=== PATIENT | female | born 1955 | race Caucasian/White ===

== ENCOUNTER → 2017-07-13 | Outpatient (CLI) | payer OTHER ==
--- NOTE | 2017-07-13 16:04 | WOMENS IMAGING REPORT ---
EXAM DESCRIPTION: BILAT SCREENING MAMMO W/CAD COMPLETED DATE/TIME: 07/13/2017 9:54 am REASON FOR STUDY: ROUTINE SCREENING; Z12.31 Z12.31 ENCNTR SCREEN MAMMOGRAM FOR MALIGNANT NEOPLASM O F JULIO CÉSAR COMPARISON: Multiple since 2008 TECHNIQUE: Standard craniocaudal and mediolateral oblique views of each breast recorded using GeoQuipa l acquisition. LIMITATIONS: None. FINDINGS: No masses, calcifications or architectural distortion. No areas of suspicion. Read with the assistance of CAD. .[facility] - R2 Cenova Version 1.3 .[facility] Imaging - R2 Cenova Version 1.3 .[facility] - R2 Cenova Version 2.4 .[facility] [place]2 Cenova Version 2.4 .[facility] - R2 Lang Path Therapist Version 9.2 IMPRESSION: NORMAL MAMMOGRAM. BIRADS 1. BREAST DENSITY: c. The breasts are heterogeneously dense, which may obscure small masses. BIRAD: 1 NEGATIVE RECOMMENDATION: ROUTINE SCREENING COMMENT: The patient has been notified of the results by letter per SA requirements. Additional no tification policies are in place for contacting patient with suspicious or incomplete findings. Quality ID #[id number]: The [employer] recommends an annual screening mammogram for women aged 40 years or over. This facility utilizes a reminder system to ensure that all patients receive reminder letters, and/or direct phone calls for appointments. This includes reminders for routine scr eening mammograms, diagnostic mammograms, or other Breast Imaging Interventions when appropriate. Th is patient will be placed in the appropriate reminder system. The [employer] (ACR) has developed recommendations for screening MRI of the breast s in certain patient populations, to be used in conjunction with mammography. Breast MRI surveillanc e may be appropriate for women with more than 20% lifetime risk of developing breast cancer as deter mined by genetic testing, significant family history of the disease, or history of mantle radiation f or Hodgkins Disease. ACR Practice Guidelines 2008. TECHNICAL DOCUMENTATION: FINDING NUMBER: (1) ASSESSMENT: (1) JOB ID: [id number] [employer]- All Rights Reserved
== END ==
LOC: WI 09:39
PROVIDERS: ATTEND Family Medicine
DX: Z12.31 Encounter for screening mammogram for malignant neoplasm of breast (principal)
CPT/HCPCS: 77067

== ENCOUNTER → 2018-07-25 | Outpatient (CLI) | payer OTHER ==
--- NOTE | 2018-07-25 11:38 | WOMENS IMAGING REPORT ---
EXAM DESCRIPTION: BILAT SCREENING MAMMO W/CAD COMPLETED DATE/TIME: 07/25/2018 11:03 am REASON FOR STUDY: ROUTINE BILATERAL SCREENING;Z12.31 Z12.31 ENCNTR SCREEN MAMMOGRAM FOR MALIGNANT N EOPLASM OF JULIO CÉSAR COMPARISON: [id number] TECHNIQUE: Standard craniocaudal and mediolateral oblique views of each breast recorded using Jianshua l acquisition. LIMITATIONS: None. FINDINGS: No masses, calcifications or architectural distortion. No areas of suspicion. Read with the assistance of CAD. .[facility] - R2 Cenova Version 1.3 .[facility] Imaging - R2 Cenova Version 1.3 .[facility] Imaging - R2 Cenova Version 2.4 .[facility] - R2 Cenova Version 2.4 .[facility] - R2 Foundry Melt Supervisor Version 9.2 IMPRESSION: NORMAL MAMMOGRAM. BIRADS 1. BREAST DENSITY: b. There are scattered areas of fibroglandular density. BIRAD: 1 NEGATIVE RECOMMENDATION: ROUTINE SCREENING COMMENT: The patient has been notified of the results by letter per MQSA requirements. Additional no tification policies are in place for contacting patient with suspicious or incomplete findings. Quality ID #[id number]: The [employer] recommends an annual screening mammogram for women aged 40 years or over. This facility utilizes a reminder system to ensure that all patients receive reminder letters, and/or direct phone calls for appointments. This includes reminders for routine scr eening mammograms, diagnostic mammograms, or other Breast Imaging Interventions when appropriate. Th is patient will be placed in the appropriate reminder system. The [employer] (ACR) has developed recommendations for screening MRI of the breast s in certain patient populations, to be used in conjunction with mammography. Breast MRI surveillanc e may be appropriate for women with more than 20% lifetime risk of developing breast cancer as deter mined by genetic testing, significant family history of the disease, or history of mantle radiation f or Hodgkins Disease. ACR Practice Guidelines 2008. TECHNICAL DOCUMENTATION: FINDING NUMBER: (1) ASSESSMENT: (1) JOB ID: [id number] [employer]- All Rights Reserved Reading location - IP/workstation name: [facility]
== END ==
LOC: WI 10:52
PROVIDERS: ATTEND Family Medicine
DX: Z12.31 Encounter for screening mammogram for malignant neoplasm of breast (principal)
CPT/HCPCS: 77067

== ENCOUNTER → 2020-01-16 | Outpatient (CLI) | payer OTHER ==
--- NOTE | 2020-01-16 11:42 | WOMENS IMAGING REPORT ---
EXAM DESCRIPTION: BILAT SCREENING MAMMO W/CAD IMAGES COMPLETED DATE/TIME: 01/16/2020 11:27 am REASON FOR STUDY: Z12.31 ENCOUNTER FOR SCREENING MAMMOGRAM FOR MALIGNANT NEOPLASM OF BREAST Z12.31 ENCNTR SCREEN MAMMOGRAM FOR MALIGNANT NEOPLASM OF JULIO CÉSAR COMPARISON: 07/25/2018, 07/13/2017 EXAM PARAMETERS: Standard craniocaudal and mediolateral oblique views of each breast recorded using digital acquisition. Read with the assistance of CAD. .[facility] [employer] Box Chipper Version 9.2 LIMITATIONS: None. FINDINGS: No suspicious masses, suspicious calcifications or architectural distortion. No areas of c oncern. IMPRESSION: NEGATIVE MAMMOGRAM. BIRADS 1 BREAST DENSITY: b. There are scattered areas of fibroglandular density. BIRAD: ASSESSMENT: 1 NEGATIVE RECOMMENDATION: ROUTINE SCREENING COMMENT: The patient has been notified of the results by letter per MQSA requirements. Additional no tification policies are in place for contacting patient with suspicious or incomplete findings. Quality ID #225: The [employer] recommends an annual screening mammogram for women aged 40 years or over. This facility utilizes a reminder system to ensure that all patients receive reminder letters, and/or direct phone calls for appointments. This includes reminders for routine scr eening mammograms, diagnostic mammograms, or other Breast Imaging Interventions when appropriate. Th is patient will be placed in the appropriate reminder system. TECHNICAL DOCUMENTATION: FINDING NUMBER: (1) ASSESSMENT: (1) JOB ID: [id number] 2010 [employer]- All Rights Reserved Reading location - IP/workstation name: [email or web address]
== END ==
LOC: WI 10:43
PROVIDERS: ATTEND Family Medicine
DX: Z12.31 Encounter for screening mammogram for malignant neoplasm of breast (principal)
CPT/HCPCS: 77067

== ENCOUNTER 2020-02-04 21:23 | Observation (INO) | payer OTHER ==
--- NOTE | 2020-02-04 22:02 | ER Document Report ---
ED Syncope and Near Syncope - General Chief Complaint: Syncope Stated Complaint: SYNCOPAL EPISODES Time Seen by Provider: 02/04/20 21:40 Primary Care Provider: BAKARI VERDIN MD [Primary Care Provider] - Follow up as needed Mode of Arrival: Medic Information source: Patient, Relative Notes: 64-year-old female presented to ED after having a syncopal episode at her daughter's house. She states about a half an hour before passing out she took her Cymbalta and her trazodone. She states she went to her ENT doctor today about 3 PM and at that time he told her her blood pressure was 90/60. She states she normally has high blood pressure but she takes Micardis which she took around noon time. She states when she went to her daughter's house before getting out of the car she felt drunk which she does not usually feel with her trazodone. She states she got out of the car stood up and then she passed out landing on the ground. states he had already gone into the daughter's house and came out and found her on the ground but she was awake and alert. She also has diabetes and told her her sugar was high today at her visit. She states they started on insulin today but she has not taken any insulin yet. She states EMS told her that her Accu-Chek was 290. Patient is alert oriented able to answer all questions. Her blood pressure at this time is 83/55. TRAVEL OUTSIDE OF THE [place] IN LAST 30 DAYS: No - HPI Patient complains to provider of: Other - States he got out of the car and passed out Episode witnessed (by whom): Yes - Found on the ground awake at that time. She does have scratches to the french Symptoms prior to episode: Dizziness, Headache, Other - Neck pain Position/Activity at time of episode: Standing Quality of pain: Achy Severity: Moderate Pain Level: 3 Context: Collapsed, Other Injury location: Back, Neck Current symptoms: Headache, Neck pain, Weakness Similar symptoms previously: No Recently seen / treated by doctor: Yes - Related Data Allergies/Adverse Reactions: avocado Allergy (Intermediate, Verified 02/04/20 21:55) iodine Allergy (Mild, Verified 02/04/20 21:55) rash Sulfa (Sulfonamide Antibiotics) Allergy (Mild, Verified 02/04/20 21:55) rash ivp dye Allergy (Mild, Uncoded 02/04/20 21:55) rash Past Medical History - General Information source: Patient - Social History Smoking Status: Never Smoker Frequency of alcohol use: None Drug Abuse: None Lives with: Family Family History: Reviewed & Not Pertinent Patient has suicidal ideation: No Patient has homicidal ideation: No - Past Medical History Cardiac Medical History: Reports: Hx Coronary Artery Disease, Hx Hypercholesterolemia, Hx Hypertension Pulmonary Medical History: Reports: Hx Pneumonia - A YOUNG CHILD AND ABOUT 10YRS AGO Neurological Medical History: Reports: Hx Seizures - FEBRILE SEIZURES A BABY Endocrine Medical History: Reports: Hx Diabetes Mellitus Type 2 Renal/ Medical History: Reports: None Malignancy Medical History: Reports: None GI Medical History: Reports: None Musculoskeletal Medical History: Reports Hx Arthritis - KNEES Skin Medical History: Reports None Psychiatric Medical History: Reports: Hx Anxiety, Hx Depression Past Surgical History: Reports: Hx Cholecystectomy, Hx Hysterectomy - total, Hx Nose Surgery - Surgery, Hx Orthopedic Surgery - Right hip replacement - Immunizations Hx Diphtheria, Pertussis, Tetanus Vaccination: Yes - ABOUT 5YRS AGO Review of Systems - Review of Systems Constitutional: No symptoms reported EENT: No symptoms reported Cardiovascular: Dizziness Respiratory: No symptoms reported Gastrointestinal: No symptoms reported Genitourinary: No symptoms reported Female Genitourinary: No symptoms reported Musculoskeletal: Muscle pain, Neck pain Skin: Other - Lesions to the left hand Hematologic/Lymphatic: No symptoms reported Neurological/Psychological: Lost consciousness - states he went in and came back out and she was already awake, Headaches -: Yes All other systems reviewed and negative Physical Exam - Vital signs Vitals: Temp 97.9 F 02/04/20 22:16 Interpretation: Normal - General General appearance: Appears well, Alert - HEENT Head: Tenderness Eyes: Normal Pupils: PERRL Ears: Normal External canal: Normal Tympanic membrane: Normal Sinus: Normal Nasal: Normal Mucous membranes: Normal Pharynx: Normal Neck: Normal - Respiratory Respiratory status: No respiratory distress Chest status: Nontender Breath sounds: Normal Chest palpation: Normal - Cardiovascular Rhythm: Regular Heart sounds: Normal auscultation Murmur: No - Abdominal Inspection: Normal Distension: No distension Bowel sounds: Normal Tenderness: Nontender Organomegaly: No organomegaly - Back Back: Normal, Nontender - Extremities General upper extremity: Normal inspection, Nontender, Normal color, Normal ROM, Normal temperature General lower extremity: Normal inspection, Nontender, Normal color, Normal ROM, Normal temperature, Normal weight bearing. No: Pia's sign - Neurological Neuro grossly intact: Yes Cognition: Normal Orientation: AAOx4 Yoly Coma Scale Eye Opening: Spontaneous Yoly Coma Scale Verbal: Oriented Yoly Coma Scale Motor: Obeys Commands [place] Coma Scale Total: 15 Speech: Normal Motor strength normal: LUE, RUE, LLE, RLE Sensory: Normal - Psychological Associated symptoms: Normal affect, Normal mood - Skin Skin Temperature: Warm Skin Moisture: Dry Skin Color: Normal Course - Re-evaluation Re-evalutation: 02/05/20 01:46 Orthostatic hypotension signs were put in the computer backwards. Her standing blood pressure was 99/69 with a pulse of 75 her sitting blood pressure was 108/73 and her lying blood pressure was 124 with a pulse of 95. She states she is feeling much better. Her glucose did drop from 319 -280 after the first liter of fluids. Have discussed this patient with Dr. Osuna who did go in and examined the patient. Cardiac enzymes were negative her BUN/creatinine were normal she has received 2 L of fluids. I have discussed this with Dr. Perez and she will be admitted to observation telemetry to ensure that she is no longer orthostatic hypotension. - Vital Signs Vital signs: Temp Pulse Resp BP Pulse Ox 97.9 F 75 99/69 L 02/04/20 22:16 02/05/20 01:04 02/05/20 01:04 - Laboratory Result Diagrams: 02/04/20 22:12 02/04/20 22:12 Laboratory results interpreted by me: 02/04/20 02/04/20 02/05/20 22:12 22:12 00:44 MCV 98 H Plt Count 131 L Sodium 134.3 L Glucose 319 H AST 210 H ALT 325 H Creatine Kinase 26 L Urine Protein 30 H Urine Glucose (UA) >=500 H - Diagnostic Test Radiology reviewed: Image reviewed, Reports reviewed - EKG Interpretation by Me EKG shows normal: Sinus rhythm, Leona, Intervals, QRS Complexes, ST-T Waves Discharge - Discharge Clinical Impression: Syncope Qualifiers: Syncope type: unspecified Qualified Code(s): R55 - Syncope and collapse Hypotension Qualifiers: Hypotension type: orthostatic hypotension Qualified Code(s): I95.1 - Orthostatic hypotension Disposition: ADMITTED OBSERVATION Admitting Provider: Chris (Hospitalist) Unit Admitted: Telemetry Referrals: BAKARI VERDIN MD [Primary Care Provider] - Follow up as needed
[2020-02-04] MEDS: NORMAL SALINE 1000 ML 1,000 ML IV PRN ×2 (22:25→23:29)
[2020-02-04 22:40] LABS: ABSOLUTE BASOPHILS # (AUTO) 0.1 10^3/uL (0.0-0.2); ABSOLUTE EOSINOPHILS # (AUTO) 0.3 10^3/uL (0.0-0.6); ABSOLUTE LYMPHOCYTES (AUTO) 1.3 10^3/uL (0.5-4.7); ABSOLUTE MONOCYTES (AUTO) 0.7 10^3/uL (0.1-1.4); ABSOLUTE NEUT (AUTO) 4.4 10^3/uL (1.7-8.2); EOSINOPHILS % (AUTO) 4.3 % (0-6); HEMATOCRIT 42.3 % (36.0-47.0); HEMOGLOBIN 14.1 g/dL (12.0-15.5); LYMPHOCYTES % (AUTO) 18.9 % (13-45); MEAN CORPUSCULAR HEMOGLOBIN 32.9 pg (27.0-33.4); MEAN CORPUSCULAR HGB CONC 33.5 g/dL (32.0-36.0); MEAN CORPUSCULAR VOLUME 98 fl (80-97); MONOCYTES % (AUTO) 10.1 % (3-13); PLATELET COUNT 131 10^3/uL (150-450); SEGMENTED NEUTROPHILS % (AUTO) 65.7 % (42-78); TOTAL CELLS COUNTED % (AUTO) 100 %; WHITE BLOOD COUNT 6.7 10^3/uL (4.0-10.5)
[2020-02-04 22:57] LABS: ALBUMIN 4.2 g/dL (3.5-5.0); ALKALINE PHOSPHATASE 62 U/L (38-126); ANION GAP 8 (5-19); ASPARTATE AMINO TRANSFERASE 210 U/L (14-36); BILIRUBIN,DIRECT 0.1 mg/dL (0.0-0.4); BILIRUBIN,TOTAL 0.9 mg/dL (0.2-1.3); BLOOD UREA NITROGEN 16 mg/dL (7-20); CALCIUM 9.2 mg/dL (8.4-10.2); CARBON DIOXIDE 24 mmol/L (22-30); CHLORIDE 102 mmol/L (98-107); CREATINE KINASE 26 U/L (30-135); GLUCOSE 319 mg/dL (75-110); POTASSIUM 4.5 mmol/L (3.6-5.0); TOTAL PROTEIN 7.3 g/dL (6.3-8.2)
--- NOTE | 2020-02-04 23:06 | RADIOLOGY REPORT (SQ) ---
EXAM DESCRIPTION: CT HEAD WITHOUT IV CONTRAST COMPLETED DATE/TME: 02/04/2020 21:55 CLINICAL HISTORY: 64 years, Female, Syncopal episode with head and neck pain COMPARISON: None. TECHNIQUE: Noncontrast CT head was acquired. Coronal and sagittal reformations were created. Images stored on PACS. All CT scanners at this facility use dose modulation, iterative reconstruction, and/or weight based dosing when appropriate to reduce radiation dose to as low as reasonably achievable (ALARA). [facility]: Dose Right [facility]: CareDose [facility]: Dose Right [facility]: Teradose 4D [facility]: Polyvore LIMITATIONS: None. FINDINGS: Evaluation of the brain parenchyma reveals an isolated focus of hypodensity about the anterior limb of the left internal capsule, indicating a remote lacunar infarct. Ventricles and sulcal spaces are mildly enlarged. Globes and orbits show no acute abnormality. Mild mucosal thickening is noted about the right maxillary antrum. Remaining paranasal sinuses and mastoid air cells are clear. No depressed skull fractures. The sella is completely empty. IMPRESSION: No acute intracranial abnormality. Mild generalized atrophy. Small remote lacunar infarct within the anterior limb of the left internal capsule. TECHNICAL DOCUMENTATION: Quality ID # 436: Final reports with documentation of one or more dose reduction techniques (e.g., Automated exposure control, adjustment of the mA and/or kV according to patient size, use of iterative reconstruction technique) copyright 2011 [facility] [employer]- All Rights Reserved
[2020-02-04 23:09] LABS: CREATINE KINASE MB < 0.22 ng/mL (<4.55); TROPONIN I < 0.012 ng/mL
--- NOTE | 2020-02-04 23:12 | RADIOLOGY REPORT (SQ) ---
EXAM DESCRIPTION: CT CERVICAL SPINE WITHOUT IV CONTRAST COMPLETED DATE/TME: 02/04/2020 21:54 CLINICAL HISTORY: 64 years, Female, Syncopal episode with head and neck pain COMPARISON: None. TECHNIQUE: Noncontrast CT cervical spine was acquired. Coronal and sagittal reformations were created. Images stored on PACS. All CT scanners at this facility use dose modulation, iterative reconstruction, and/or weight based dosing when appropriate to reduce radiation dose to as low as reasonably achievable (ALARA). [facility]: Dose Right [facility]: CareDose [facility]: Dose Right [facility]: Teradose 4D [facility]: [email or web address] LIMITATIONS: None. FINDINGS: Limited evaluation of the posterior fossa structures reveals no suspicious abnormality. Occipital condyles are normal. Lateral masses of C1 and C2 align properly. Base and tip of the dens are intact. Craniocervical alignment is maintained. There is reversal of the normal cervical lordosis, either related to positioning and/or muscle spasm. Otherwise, mild/moderate multilevel cervical spondylosis is evident, designated by intervertebral space narrowing, hypertrophic endplate spurring, and facet hypertrophy. This is most pronounced spanning C5-C7. In addition, left uncovertebral joint hypertrophy at C5-C6 contributes to moderate left neural foraminal stenosis. Additional bilateral uncovertebral joint hypertrophy at C6-C7 contributes to mild bilateral right greater than left neural foraminal stenosis. No acute fracture or malalignment is appreciated. Visualized lung apices are clear. Paravertebral soft tissues show heterogenous enlargement of the left thyroid lobe posteriorly measuring up to 2.0 x 2.0 cm in size. Calcifications are evident about the carotid vasculature bilaterally. IMPRESSION: No acute fracture or malalignment. Reversal of the normal cervical lordosis, either related to positioning and/or muscle spasm. Multilevel cervical spondylosis, as above. Heterogeneous and enlarged thyroid. Recommend thyroid US. Reference: J Am Carter Radiol. 2015 Aug;12(2): 143-50 TECHNICAL DOCUMENTATION: Quality ID # 436: Final reports with documentation of one or more dose reduction techniques (e.g., Automated exposure control, adjustment of the mA and/or kV according to patient size, use of iterative reconstruction technique) copyright 2011 [employer]- All Rights Reserved
--- NOTE | 2020-02-04 23:37 | ER Document Report ---
Doctor's Note Notes: 02/04/20 23:32 This is a 64-year-old female I was asked to see along with nurse practitioner for evaluation of weakness and syncopal episode. Patient is followed by 1 of the community physicians with a history of hypertension, diabetes mellitus type 2 and depression on multiple medications. She took what would normally be her bedtime medications around 8 PM but then her decided that he wanted them to go visit her daughter shay before they went to bed. When they were getting in the car she had a brief syncopal episode and fell striking her head. Initial blood pressure was around 80 systolic. Prior to my evaluation she already received a liter of normal saline IV and pressure was up to 110/70 with a pulse rate of 60. She complains of some slight dull headache and otherwise has no specific complaints. She states that she has been eating and drinking normally. She denies diarrhea or vomiting. She denies any chest pain or shortness of breath. Evaluation at bedside shows patient is currently on a normal sinus rhythm her chest is clear her cardiac rhythm is regular and her neurologic exam is n onfocal. She is awake alert and appropriately oriented. Chest x-ray and EKG and urinalysis are pending. Her initial troponin is normal. Her comprehensive metabolic profile is remarkable for a glucose of 319 with transaminases elevated in the 150 range probably consistent with fatty infiltration of the liver associated with poorly controlled diabetes mellitus type 2. Current recommendations for the patient to remain on cardiac monitoring, have twelve-lead EKG documented and to receive an additional liter of fluid. Noncontrast CT of head and C-spine are pending at this time as well. 02/04/20 23:35
[2020-02-05 01:33] LABS: APPEARANCE,URINE SLIGHTLY-CLOUDY; BILIRUBIN,URINE NEGATIVE (NEGATIVE); COLOR,URINE YELLOW; GLUCOSE, URINE >=500 mg/dL (NEGATIVE); KETONES,URINE NEGATIVE (NEGATIVE); LEUKOCYTE ESTERASE,URINE NEGATIVE (NEGATIVE); NITRITE,URINE NEGATIVE (NEGATIVE); PROTEIN,URINE 30 mg/dL (NEGATIVE); URINE SPECIFIC GRAVITY 1.017; UROBILINOGEN,URINE NEGATIVE mg/dL (<2.0)
--- NOTE | 2020-02-05 01:50 | RADIOLOGY REPORT (SQ) ---
EXAM DESCRIPTION: [employer]: XR CHEST 2 VIEWS Views: 2 CLINICAL HISTORY: 64 years Female; syncope; COMPARISON: None. FINDINGS: Lungs: Lungs are clear, with no focal infiltrate, pneumothorax, or pleural effusion. Mediastinum: Mediastinum is within normal limits for this positioning. Bones: Bony structures are unremarkable. IMPRESSION: 1. No acute cardiothoracic abnormality.
[2020-02-05] MEDS ORDERED: MAGNESIUM HYDROXIDE SUSP 30 ML UDCUP PO PRN (03:43)
[2020-02-05] MEDS ORDERED: ONDANSETRON HCL INJ/PF 4 MG/2 ML SDV IV PRN (03:43)
[2020-02-05] MEDS ORDERED: MAG HYDROX/AL HYDROX/SIMETH SUSP 30 ML UDCUP PO PRN (03:43)
[2020-02-05] MEDS ORDERED: LORAZEPAM INJ 2 MG/1 ML VIAL IV PRN (03:49)
[2020-02-05] MEDS ORDERED: GUAIFENESIN SYRP 200 MG/10 ML UDC PO PRN (03:49)
[2020-02-05] MEDS ORDERED: ACETAMINOPHEN 325 MG TABLET PO PRN (03:49)
[2020-02-05] MEDS ORDERED: MORPHINE SULFATE 10 MG/ML INJ IV PRN (03:49)
[2020-02-05] MEDS ORDERED: MELATONIN 5 MG TABLET PO PRN (03:49)
[2020-02-05] MEDS ORDERED: INSULIN REG, HUMAN 100 UNIT/ML 3 ML VIAL (PYX) SUBCUT PRN (03:49)
[2020-02-05] MEDS ORDERED: GLUCAGON,HUMAN RECOMB 1 MG INJ IM PRN (03:52)
[2020-02-05] MEDS ORDERED: DEXTROSE 50%-WATER 25 GM/50 ML DISP.SYRIN IV PRN ×2 (03:52)
[2020-02-05] MEDS ORDERED: DEXTROSE 40% GEL 15 GM TUBE PO PRN ×2 (03:52)
[2020-02-05 05:34] LABS: CREATINE KINASE MB < 0.22 ng/mL (<4.55); TROPONIN I < 0.012 ng/mL
--- NOTE | 2020-02-05 06:45 | PDOC H&P ---
History of Present Illness Admission Date/PCP: 02/05/20 01:53 BAKARI VERDIN MD Patient complains of: Syncopal episode History of Present Illness: KENISHA BARRERA is a 64 year old female who presented emergency room with an acute syncopal episode. Prior to arrival in the ER she experienced a syncopal episode at her daughter's home. Before leaving home to go to visit her daughter she had taken her usual nighttime medications of trazodone and Cymbalta. When they arrived at her daughter's home she felt lightheaded and "drunk" as she was getting out of the car and then as she stood up she lost consciousness landing on the ground, striking the back of her head. She was unconscious for only a minute or so before spontaneously regaining consciousness and was alert but still laying on the ground by the time her arrived by her side as he returned from the house. She felt awake and alert but still became lightheaded with any attempts at standing. She denies other associated or accompanying signs and symptoms. She denies prior similar episodes. She admits that earlier in the day she had been told she would have to start taking insulin because her blood sugar control was poor. She was also seen by her ear nose and throat physician who told her incidentally that her blood pressure was 90/60 in his office. She has not identified any additional aggravating or ameliorating factors for her syncope. In the emergency room she was noted to be mildly hypotensive with a blood pressure 83/55 which improved after receiving a liter of IV fluid. CT scan of the head was negative for intracranial injury or acute intracranial process. Patient was still orthostatically hypotensive after receiving fluids. She was subsequently admitted to observation status for further evaluation and treatment. Past Medical History Cardiac Medical History: Reports: Coronary Artery Disease, Hyperlipidema, Hypertension Denies: Atrial Fibrillation, Congestive Heart Failure, DVT, Myocardial Infarction, Peripheral Vascular Disease, Pulmonary Embolism Pulmonary Medical History: Reports: Pneumonia - A YOUNG CHILD AND ABOUT 10YRS AGO Denies: Asthma, Bronchitis, Chronic Obstructive Pulmonary Disease (COPD) EENT Medical History: Denies: Cataracts, Ears - Hearing aids Neurological Medical History: Reports: Seizures - Infantile febrile seizures Denies: Hemorrhagic CVA, Ischemic CVA Endocrine Medical History: Reports: Diabetes Mellitus Type 2, Hypothyroidism, Obesity Denies: Diabetes Mellitus Type 1, Hyperthyroidism Renal/ Medical History: Denies: Chronic Kidney Disease, Nephrolithiasis Malignancy Medical History: Reports: None GI Medical History: Denies: Cirrhosis, Crohn's Disease, Hepatitis, Ulcerative Colitis Musculoskeltal Medical History: Reports: Arthritis - Bilateral knees Denies: Fibromyalgia Skin Medical History: Denies: Eczema, Psoriasis Psychiatric Medical History: Reports: Bipolar Disorder, Depression Denies: Alcohol Dependency, Substance Abuse, Tobacco Dependency Traumatic Medical History: Reports: None Hematology: Denies: Anemia, Bleeding Tendencies Infectious Medical History: Reports: None Past Surgical History Past Surgical History: Reports: Cholecystectomy, Hip Replacement, Hysterectomy - [facility], Orthopedic Surgery - Right hip replacement, Other - Multiple endoscopic procedures Social History Information Source: Patient Lives with: Spouse/Significant other Smoking Status: Never Smoker Electronic Cigarette use?: Yes Frequency of Alcohol Use: None Hx Recreational Drug Use: No Drugs: None Hx Prescription Drug Abuse: No - Advance Directive Resuscitation Status: Full Code Surrogate healthcare decision maker:: Lloyd Barrera Family History Family History: DM, Hypertension. denies: CAD, Malignancy Parental Family History Reviewed: Yes Children Family History Reviewed: No Sibling(s) Family History Reviewed.: Yes Medication/Allergy Home Medications: Dextroamphetamine/Amphetamine [Adderall 20 mg Tablet] 1 tab PO DAILY 02/22/13 Levothyroxine Sodium [Synthroid] 125 mcg PO DAILY 02/22/13 Metformin HCl [Glucophage 1000 mg Tablet] 1,000 mg PO BID 02/22/13 Sertraline HCl [Zoloft] 100 mg PO DAILY 02/22/13 Telmisartan [Micardis 20 mg Tablet] 20 mg PO DAILY 02/22/13 Trazodone HCl 100 mg PO QHS 02/22/13 Glipizide [Glipizide ER] 5 mg PO DAILY 02/04/16 Loperamide HCl [Loperamide] 2 mg PO ASDIR PRN 02/04/16 Lorazepam [Ativan 0.5 mg Tablet] 0.5 mg PO BID 02/04/16 Esomeprazole Magnesium [Nexium] 20 mg PO DAILY 02/18/16 Allergies/Adverse Reactions: avocado Allergy (Intermediate, Verified 02/04/20 21:55) iodine Allergy (Mild, Verified 02/04/20 21:55) rash Sulfa (Sulfonamide Antibiotics) Allergy (Mild, Verified 02/04/20 21:55) rash ivp dye Allergy (Mild, Uncoded 02/04/20 21:55) rash Review of Systems Constitutional: ABSENT: chills, fever(s) Eyes: ABSENT: visual disturbances, other - Eye pain Ears: ABSENT: hearing changes, other - Ear pain Nose, Mouth, and Throat: ABSENT: headache(s), sore throat Cardiovascular: ABSENT: chest pain, palpitations Respiratory: ABSENT: cough, dyspnea Gastrointestinal: ABSENT: abdominal pain, constipation, diarrhea, nausea, vomiting Genitourinary: ABSENT: dysuria, hematuria Musculoskeletal: PRESENT: other - Soreness in the back of her head and neck since syncopal episode. ABSENT: joint swelling, muscle weakness Integumentary: PRESENT: other - Sustained an abrasion to her hand with syncopal episode. ABSENT: pruritus, rash Neurological: PRESENT: as per HPI, dizziness, syncope, other - Struck the back of her head with syncopal episode. ABSENT: confusion, convulsions, focal weakness, memory loss Psychiatric: ABSENT: anxiety, depression Endocrine: ABSENT: cold intolerance, heat intolerance Hematologic/Lymphatic: ABSENT: easy bleeding, easy bruising Allergic/Immunologic: ABSENT: seasonal rhinorrhea Physical Exam Vital Signs: Temp Pulse Resp BP Pulse Ox 97.9 F 75 20 99/69 L 94 02/04/20 22:16 02/05/20 01:04 02/05/20 01:32 02/05/20 01:04 02/05/20 01:32 Intake & Output 02/03/20 02/04/20 02/05/20 23:59 23:59 23:59 Intake Total 1000 1000 Balance 1000 1000 Weight 98.43 kg General appearance: PRESENT: no acute distress, cooperative Head exam: PRESENT: normocephalic. ABSENT: atraumatic - Minimal occipital edema consistent with contusion Eye exam: PRESENT: conjunctiva pink. ABSENT: conjunctival injection, scleral icterus Ear exam: PRESENT: normal external ear exam. ABSENT: bleeding, drainage Mouth exam: PRESENT: dry mucosa, neck supple Neck exam: ABSENT: thyromegaly, tracheal deviation Respiratory exam: PRESENT: clear to auscultation anjel, symmetrical, unlabored Cardiovascular exam: PRESENT: RRR. ABSENT: clicks, gallop, rubs Pulses: PRESENT: normal radial pulses, +1 pedal pulses bilateral Vascular exam: PRESENT: normal capillary refill. ABSENT: pallor GI/Abdominal exam: PRESENT: normal bowel sounds, soft Rectal exam: PRESENT: deferred Extremities exam: PRESENT: pedal edema - Trace bilateral, other - Trace pretibial edema bilateral Musculoskeletal exam: ABSENT: deformity, dislocation Neurological exam: PRESENT: alert, oriented to person, oriented to place, oriented to time, oriented to situation, CN II-XII grossly intact. ABSENT: motor sensory deficit Psychiatric exam: PRESENT: appropriate affect, normal mood Skin exam: PRESENT: abrasion - Minimal abrasions of her hands are noted, dry, warm. ABSENT: jaundice, rash, urticaria Results Laboratory Results: 02/04/20 22:12 02/04/20 22:12 02/04/20 02/04/20 02/05/20 22:12 22:12 00:44 WBC 6.7 RBC 4.30 Hgb 14.1 Hct 42.3 MCV 98 H MCH 32.9 MCHC 33.5 RDW 14.0 Plt Count 131 L Seg Neutrophils % 65.7 Sodium 134.3 L Potassium 4.5 Chloride 102 Carbon Dioxide 24 Anion Gap 8 BUN 16 Creatinine 0.77 Est GFR ( Amer) > 60 Glucose 319 H Calcium 9.2 Total Bilirubin 0.9 AST 210 H Alkaline Phosphatase 62 Total Protein 7.3 Albumin 4.2 Urine Color YELLOW Urine Appearance SLIGHTLY-CLOUDY Urine pH 5.0 Ur Specific [place] 1.017 Urine Protein 30 H Urine Glucose (UA) >=500 H Urine Ketones NEGATIVE Urine Blood NEGATIVE Urine Nitrite NEGATIVE Ur Leukocyte Esterase NEGATIVE Urine WBC (Auto) 2 Urine RBC (Auto) 1 02/04/20 02/04/20 22:12 22:12 Creatine Kinase 26 L CK-MB (CK-2) < 0.22 Troponin I < 0.012 Impressions: Cervical Spine CT 02/04/20 21:54 IMPRESSION: No acute fracture or malalignment. Reversal of the normal cervical lordosis, either related to positioning and/or muscle spasm. Multilevel cervical spondylosis, as above. Heterogeneous and enlarged thyroid. Recommend thyroid US. Reference: J Am Carter Radiol. 2015 Aug;12(2): 143-50 TECHNICAL DOCUMENTATION: Quality ID # 436: Final reports with documentation of one or more dose reduction techniques (e.g., Automated exposure control, adjustment of the mA and/or kV according to patient size, use of iterative reconstruction technique) copyright 2011 [employer]- All Rights Reserved Head CT 02/04/20 21:55 IMPRESSION: No acute intracranial abnormality. Mild generalized atrophy. Small remote lacunar infarct within the anterior limb of the left internal capsule. TECHNICAL DOCUMENTATION: Quality ID # 436: Final reports with documentation of one or more dose reduction techniques (e.g., Automated exposure control, adjustment of the mA and/or kV according to patient size, use of iterative reconstruction technique) copyright 2010 [employer]- All Rights Reserved Chest X-Ray 02/04/20 23:26 IMPRESSION: 1. No acute cardiothoracic abnormality. Assessment and Plan - Diagnosis (1) Episode of syncope Qualifiers: Syncope type: unspecified Qualified Code(s): R55 - Syncope and collapse Is this a current diagnosis for this admission?: Yes (2) Orthostatic hypotension Is this a current diagnosis for this admission?: Yes (3) Diabetes mellitus type 2 in obese Is this a current diagnosis for this admission?: Yes (4) Hypertension Qualifiers: Hypertension type: essential hypertension Qualified Code(s): I10 - Essential (primary) hypertension Is this a current diagnosis for this admission?: Yes (5) Hyperlipidemia Qualifiers: Hyperlipidemia type: unspecified Qualified Code(s): E78.5 - Hyperlipidemia, unspecified Is this a current diagnosis for this admission?: Yes (6) Coronary artery disease Qualifiers: Coronary Disease-Associated Artery/Lesion type: [place] artery [place] vs. transplanted heart: [place] heart Associated angina: without angina Qualified Code(s): I25.10 - Atherosclerotic heart disease of [place] coronary artery without angina pectoris Is this a current diagnosis for this admission?: Yes (7) Depression Qualifiers: Depression Type: unspecified Qualified Code(s): F32.9 - Major depressive disorder, single episode, unspecified Is this a current diagnosis for this admission?: Yes - Plan Summary Summary: Patient will be admitted to observation status on the telemetry unit where she will receive routine supportive and symptomatic cares. Serial cardiac enzymes will be obtained. A cardiology consultation with Dr. Hdz will be obtained. Patient will be given IV fluids utilizing lactated Ringer solution at 167 mL/h initially. A carotid Doppler study will be performed. Patient will receive Ativan 1 mg IV every 4 hours as needed for anxiety or restlessness. She will receive morphine sulfate 2 to 4 mg IV every 2 hours as needed for control of pain. A hemoglobin A1c, a thyroid profile and a lipid profile will be obtained. Patient will be on a diabetic and cardiac restricted diet. Before meals and at bedtime Accu-Cheks will be obtained with sliding scale insulin used to control hyperglycemia and a hypoglycemic protocol in place. - Time Time Spent with patient: 15-24 minutes Medications reviewed and adjusted accordingly: Yes Anticipated Discharge Disposition: Home, Self Care Anticipated Discharge: within 36 hours - Inpatient Certification Based on my medical assessment, after consideration of the patient's comorbid ities, presenting symptoms, or acuity I expect that the services needed warrant INPATIENT care.: No I certify that my determination is in accordance with my understanding of Tommie crocker's requirements for reasonable and necessary INPATIENT services [42 CFR 412.3e].: No
[2020-02-05] MEDS: HEPARIN SOD (PORCINE) 5,000 UNIT/ML 1 ML VIAL SUBCUT SCH ×3 (07:43→23:11)
--- NOTE | 2020-02-05 10:13 | EKG REPORT ---
SEVERITY:- NORMAL ECG - SINUS RHYTHM : Confirmed by: Delores He MD 05-Feb-2020 10:13:21
[2020-02-05] MEDS: FAMOTIDINE 20 MG TABLET PO SCH ×2 (10:16→23:05)
[2020-02-05] MEDS: DOCUSATE SODIUM 100 MG CAPSULE PO SCH ×2 (10:16→19:29)
[2020-02-05] MEDS: RINGERS SOLUTION,LACTATED 1,000 ML IV PRN ×3 (10:17→23:06)
[2020-02-05 11:18] LABS: CREATINE KINASE MB < 0.22 ng/mL (<4.55)
[2020-02-05 11:19] LABS: TROPONIN I < 0.012 ng/mL
--- NOTE | 2020-02-05 11:23 | PDOC CONSULTATION ---
Consultation Consult Date: 02/05/20 Attending physician:: MAYUR PETER Provider Consulted: SHAHZAD SWEET Consult reason:: Syncope History of Present Illness Admission Date/PCP: 02/05/20 01:53 BAKARI VERDIN MD History of Present Illness: KENISHA ROSE is a 64 year old female with history of hypertension, type 2 diabetes, hyperlipidemia, prior history of tobacco use who had been vaping for the last 6 years and family history of premature coronary artery disease in her father who had his first bypass surgery in his 40s who is consulted to our service for evaluation of syncope. The patient had been in her usual state of health until 1 or 2 days prior to admission when she was incidentally found to have low blood pressure with a systolic reading in the mid 90s during an evaluation by her ENT physician. The day of admission she was doing well and took her usual dose of trazodone and Cymbalta but instead of going to bed she went to visit her adult child. While in the car she felt "drunk" but had no other symptoms. Upon arriving at her destination and while she was exiting the car she felt very dizzy and lightheaded, was diaphoretic and lost consciousness for an unknown amount of time. Upon awakening she felt very weak and confused. She denied preceding palpitations, chest pain but did feel very hot. She also denies prior episodes of syncope. EMS was called and found the patient hypotensive which persisted in the emergency room and improved after receiving 2 L of IV fluids. Of note, her orthostatic vital signs in the emergency room wh ere still positive. Upon my evaluation of the patient in the emergency room she feels better and without recurrence of index symptoms. She specifically denies chest pain, shortness of breath, MADRID, PND, lower extremity edema, palpitations, syncope and presyncope. Her EKG demonstrated normal sinus rhythm without any significant conduction disease. Physical exam on 02/05/2020: GENERAL: Pleasant and conversational. Oriented x3 with normal mood. Not in acute distress. Well groomed and well developed. HEENT: Normocephalic, atraumatic. Pupils equal. Sclerae anicteric. Oropharynx moist. NECK: No JVD. No carotid bruits. LUNGS: Clear to auscultation bilaterally. Normal respiratory effort without the use of accessory muscles or intercostal retractions. CARDIOVASCULAR: Regular rate and rhythm, normal S1 and S2 without murmurs, rubs, or gallops. PMI not displaced. ABDOMEN: No masses or tenderness to palpation. No bruit. No splenomegaly or hepatomegaly. No abdominal aorta bruit noted. EXTREMITIES: No edema, no cyanosis, no clubbing. +2 pulses femoral and pedal pulses bilaterally. SKIN: No lesions or rashes. MUSCULOSKELETAL: No chest tenderness to palpation. NEUROLOGIC: Nonfocal. No gross sensory or motor deficits bilateral upper or lower extremities. Past Medical History Cardiac Medical History: Reports: Coronary Artery Disease, Hyperlipidema, Hypertension Denies: Atrial Fibrillation, Congestive Heart Failure, DVT, Myocardial Infarction, Peripheral Vascular Disease, Pulmonary Embolism Pulmonary Medical History: Reports: Pneumonia - A YOUNG CHILD AND ABOUT 10YRS AGO Denies: Asthma, Bronchitis, Chronic Obstructive Pulmonary Disease (COPD) EENT Medical History: Denies: Cataracts, Ears - Hearing aids Neurological Medical History: Reports: Seizures - Infantile febrile seizures Denies: Hemorrhagic CVA, Ischemic CVA Endocrine Medical History: Reports: Diabetes Mellitus Type 2, Hypothyroidism, Obesity Denies: Diabetes Mellitus Type 1, Hyperthyroidism Renal/ Medical History: Reports: None Denies: Chronic Kidney Disease, Nephrolithiasis Malignancy Medical History: Reports: None GI Medical History: Reports: None Denies: Cirrhosis, Crohn's Disease, Hepatitis, Ulcerative Colitis Musculoskeltal Medical History: Reports: Arthritis - Bilateral knees Denies: Fibromyalgia Skin Medical History: Reports: None Denies: Eczema, Psoriasis Psychiatric Medical History: Reports: Bipolar Disorder, Depression Denies: Alcohol Dependency, Substance Abuse, Tobacco Dependency Traumatic Medical History: Reports: None Hematology: Denies: Anemia, Bleeding Tendencies Infectious Medical History: Reports: None Past Surgical History Past Surgical History: Reports: Cholecystectomy, Hip Replacement, Hysterectomy - TAHBSO, Orthopedic Surgery - Right hip replacement, Other - Multiple endoscopic procedures Denies: Pacemaker Social History Lives with: Spouse/Significant other Smoking Status: Never Smoker Electronic Cigarette use?: Yes Frequency of Alcohol Use: None Hx Recreational Drug Use: No Drugs: None Hx Prescription Drug Abuse: No - Advance Directive Resuscitation Status: Full Code Family History Family History: DM, Hypertension. denies: CAD, Malignancy Parental Family History Reviewed: Yes Children Family History Reviewed: Yes Sibling(s) Family History Reviewed.: Yes Medication/Allergy Home Medications: Levothyroxine Sodium [Synthroid] 125 mcg PO Q6AM 02/22/13 Telmisartan [Micardis 20 mg Tablet] 20 mg PO DAILY 02/22/13 Diclofenac Sodium 2 gm TOP QIDP PRN 02/05/20 Duloxetine HCl [Cymbalta 30 mg Capsule.dr] 30 mg PO BID 02/05/20 Hydrocodone/Acetaminophen [[place] 7.5-325 mg Tablet] 1 tab PO Q8HP PRN 02/05/20 Isosorbide Mononitrate [Imdur 30 mg Tablet.er] 30 mg PO DAILY 02/05/20 Metformin HCl [Metformin HCl ER] 1,000 mg PO DAILY 02/05/20 Metoprolol Succinate [Toprol Xl 25 mg Tab.sr] 25 mg PO DAILY 02/05/20 Sitagliptin Phosphate [Januvia 50 mg Tablet] 100 mg PO DAILY 02/05/20 Allergies/Adverse Reactions: avocado Allergy (Intermediate, Verified 02/04/20 21:55) iodine Allergy (Mild, Verified 02/04/20 21:55) rash Sulfa (Sulfonamide Antibiotics) Allergy (Mild, Verified 02/04/20 21:55) rash ivp dye Allergy (Mild, Uncoded 02/04/20 21:55) rash Physical Exam Vital Signs: Temp Pulse Resp BP Pulse Ox 97.9 F 75 18 107/67 94 02/04/20 22:16 02/05/20 01:04 02/05/20 07:25 02/05/20 07:25 02/05/20 07:25 Intake & Output 02/04/20 02/05/20 02/06/20 06:59 06:59 06:59 Intake Total 1999 Balance 1999 Weight 98.43 kg Results Laboratory Results: 02/04/20 22:12 02/04/20 22:12 02/04/20 02/04/20 02/05/20 22:12 22:12 00:44 WBC 6.7 RBC 4.30 Hgb 14.1 Hct 42.3 MCV 98 H MCH 32.9 MCHC 33.5 RDW 14.0 Plt Count 131 L Seg Neutrophils % 65.7 Sodium 134.3 L Potassium 4.5 Chloride 102 Carbon Dioxide 24 Anion Gap 8 BUN 16 Creatinine 0.77 Est GFR ( Amer) > 60 Glucose 319 H Calcium 9.2 Total Bilirubin 0.9 AST 210 H Alkaline Phosphatase 62 Total Protein 7.3 Albumin 4.2 Urine Color YELLOW Urine Appearance SLIGHTLY-CLOUDY Urine pH 5.0 Ur Specific [place] 1.017 Urine Protein 30 H Urine Glucose (UA) >=500 H Urine Ketones NEGATIVE Urine Blood NEGATIVE Urine Nitrite NEGATIVE Ur Leukocyte Esterase NEGATIVE Urine WBC (Auto) 2 Urine RBC (Auto) 1 02/04/20 02/04/20 02/05/20 22:12 22:12 04:37 Creatine Kinase 26 L 25 L CK-MB (CK-2) < 0.22 Troponin I < 0.012 02/05/20 04:37 Creatine Kinase CK-MB (CK-2) < 0.22 Troponin I < 0.012 Impressions: Cervical Spine CT 02/04/20 21:54 IMPRESSION: No acute fracture or malalignment. Reversal of the normal cervical lordosis, either related to positioning and/or muscle spasm. Multilevel cervical spondylosis, as above. Heterogeneous and enlarged thyroid. Recommend thyroid US. Reference: J Am Carter Radiol. 2015 Aug;12(2): 143-50 TECHNICAL DOCUMENTATION: Quality ID # 436: Final reports with documentation of one or more dose reduction techniques (e.g., Automated exposure control, adjustment of the mA and/or kV according to patient size, use of iterative reconstruction technique) copyright 2010 [employer]- All Rights Reserved Head CT 02/04/20 21:55 IMPRESSION: No acute intracranial abnormality. Mild generalized atrophy. Small remote lacunar infarct within the anterior limb of the left internal capsule. TECHNICAL DOCUMENTATION: Quality ID # 436: Final reports with documentation of one or more dose reduction techniques (e.g., Automated exposure control, adjustment of the mA and/or kV according to patient size, use of iterative reconstruction technique) copyright 2010 [employer]- All Rights Reserved Chest X-Ray 02/04/20 23:26 IMPRESSION: 1. No acute cardiothoracic abnormality. 02/04/20 22:12 02/04/20 22:12 MCV 98 fl (80-97) H 02/04/20 22:12 MCH 32.9 pg (27.0-33.4) 02/04/20 22:12 MCHC 33.5 g/dL (32.0-36.0) 02/04/20 22:12 RDW 14.0 % (11.5-14.0) 02/04/20 22:12 Seg Neutrophils % 65.7 % (42-78) 02/04/20 22:12 Chloride 102 mmol/L (98-107) 02/04/20 22:12 Carbon Dioxide 24 mmol/L (22-30) 02/04/20 22:12 Anion Gap 8 (5-19) 02/04/20 22:12 Est GFR ( Amer) > 60 (>60) 02/04/20 22:12 Glucose 319 mg/dL (75-110) H 02/04/20 22:12 Calcium 9.2 mg/dL (8.4-10.2) 02/04/20 22:12 Total Bilirubin 0.9 mg/dL (0.2-1.3) 02/04/20 22:12 AST 210 U/L (14-36) H 02/04/20 22:12 Alkaline Phosphatase 62 U/L (38-126) 02/04/20 22:12 Total Protein 7.3 g/dL (6.3-8.2) 02/04/20 22:12 Albumin 4.2 g/dL (3.5-5.0) 02/04/20 22:12 Urine Color YELLOW 02/05/20 00:44 Urine Appearance SLIGHTLY-CLOUDY 02/05/20 00:44 Urine pH 5.0 (5.0-9.0) 02/05/20 00:44 Ur Specific [place] 1.017 02/05/20 00:44 Urine Protein 30 mg/dL (NEGATIVE) H 02/05/20 00:44 Urine Glucose (UA) >=500 mg/dL (NEGATIVE) H 02/05/20 00:44 Urine Ketones NEGATIVE mg/dL (NEGATIVE) 02/05/20 00:44 Urine Blood NEGATIVE (NEGATIVE) 02/05/20 00:44 Urine Nitrite NEGATIVE (NEGATIVE) 02/05/20 00:44 Ur Leukocyte Esterase NEGATIVE (NEGATIVE) 02/05/20 00:44 Urine WBC (Auto) 2 /HPF 02/05/20 00:44 Urine RBC (Auto) 1 /HPF 02/05/20 00:44 02/04/20 02/04/20 02/05/20 22:12 22:12 04:37 Creatine Kinase 26 L 25 L CK-MB (CK-2) < 0.22 Troponin I < 0.012 02/05/20 04:37 Creatine Kinase CK-MB (CK-2) < 0.22 Troponin I < 0.012 Current Medication List Generic Name Dose Route Start Last Admin Trade Name Freq PRN Reason Stop Dose Admin Acetaminophen 650 mg 02/05/20 03:49 Tylenol 325 Mg Tablet PO 03/06/20 03:48 Q4HP PRN For headache, pain or fever Al Hydrox/Mg Hydrox/Simethicone 30 ml 02/05/20 03:43 Maalox Plus Susp 30 Udcup PO 03/06/20 03:42 Q6HP PRN HEARTBURN Dextrose 12.5 gm 02/05/20 03:52 Dextrose Inj 50% Syringe (25 Gm/50 Ml) IV 03/06/20 03:51 PRN PRN FOR BG 50-69 IN ALERT PATIENT Protocol Dextrose 25 gm 02/05/20 03:52 Dextrose Inj 50% Syringe (25 Gm/50 Ml) IV 03/06/20 03:51 PRN PRN PER PROTOCOL Protocol Docusate Sodium 100 mg 02/05/20 10:00 Colace 100 Mg Capsule PO 03/06/20 09:59 BID LEATHA Famotidine 20 mg 02/05/20 10:00 Pepcid 20 Mg Tablet PO 03/06/20 09:59 Q12 LEATHA Glucagon 1 mg 02/05/20 03:52 Glucagen Inj 1 Mg Vial IM 03/06/20 03:51 PRN PRN Evaluate for BG < 70 Protocol Glucose 15 gm 02/05/20 03:52 Glutose 40% Gel 15 Gm Tube PO 03/06/20 03:51 PRN PRN FOR BG 50-69 IN ALERT PATIENT Protocol Glucose 30 gm 02/05/20 03:52 Glutose 40% Gel 15 Gm Tube PO 03/06/20 03:51 PRN PRN FOR BG < 50 IN ALERT PATIENT Protocol Guaifenesin 200 mg 02/05/20 03:49 Robitussin Syrup 200 Mg/10 Ml Ud Cup PO 03/06/20 03:48 Q4HP PRN COUGH Heparin Sodium (Porcine) 5,000 unit 02/05/20 06:00 Heparin Inj 5,000 Units/Ml 1 Ml Vial SUBCUT 03/06/20 05:59 Q8 LEATHA Lactated Ringer's 1,000 mls @ 167 mls/hr 02/05/20 03:43 Lactated Ringers 1000 Ml Iv Soln IV 03/06/20 03:42 CONTINUOUS PRN THIS MED IS NOT "PRN" Insulin Human Regular 0 - 15 unit 02/05/20 03:49 Humulin R (Pyxis) Insulin 100 Unit/Ml 3ml SUBCUT 03/06/20 03:48 ACHSP PRN PER PROTOCOL Protocol Lorazepam 1 mg 02/05/20 03:49 Ativan Inj 2 Mg/1 Ml Vial IV 02/12/20 03:48 Q4HP PRN ANXIETY/AGITATION Magnesium Hydroxide 30 ml 02/05/20 03:43 Milk Of Magnesia 30 Ml Udcup PO 03/06/20 03:42 DAILYP PRN FOR CONSTIPATION Melatonin 5 mg 02/05/20 03:49 Melatonin 5 Mg Tablet PO 03/06/20 03:48 QHS PRN SLEEP OR INSOMNIA Morphine Sulfate 2 - 4 mg 02/05/20 03:49 Morphine 10 Mg/Ml Inj IV 02/12/20 03:48 Q2HP PRN See protocol Protocol Ondansetron HCl 4 mg 02/05/20 03:43 Zofran Inj/Pf 4 Mg/2 Ml Sdv IV 03/06/20 03:42 Q4HP PRN FOR NAUSEA/VOMITING Sodium Chloride 2.5 ml 02/05/20 06:00 Saline Flush 2.5 Ml Monoject Prefil Syrin IV 03/06/20 05:59 Q8 LEATHA Discontinued Medications Generic Name Dose Route Start Last Admin Trade Name Freq PRN Reason Stop Dose Admin Sodium Chloride 1,000 mls @ 0 mls/hr 02/04/20 21:49 02/05/20 00:30 Nacl 0.9% 1000 Ml Iv Soln IV Infused X 2 BAGS PRN Infusion THIS MED IS NOT "PRN" Wide Open Assessment & Plan - Diagnosis (1) Syncope Qualifiers: Syncope type: unspecified Qualified Code(s): R55 - Syncope and collapse Is this a current diagnosis for this admission?: Yes Plan: Unclear etiology however may be related to either dehydration as the patient was orthostatic in the emergency room versus a vasovagal event. She does not have ischemic symptoms and ruled out for acute coronary syndrome with at least 2 sets of negative cardiac enzymes. Recommendations: -Cardiac telemetry for at least 24 hours to assess for intermittent conduction disease. -Echocardiogram to assess for structural heart disease. -We will continue to follow with you.
[2020-02-05] MEDS ORDERED: DICLOFENAC SODIUM 2 GM TOP PRN (17:41)
[2020-02-05] MEDS ORDERED: HYDROCODONE/ACETAMINOPHEN 7.5-325 MG TABLET PO PRN (17:41)
--- NOTE | 2020-02-05 17:44 | Progress Note ---
Provider Note Provider Note: Patient seen and examined by me. Patient admitted for syncope. Blood sugars running in the 300s. Continue corrective insulin. I have started low-dose long-acting insulin. Continued home diabetes medications and home cardiac meds. Suspect patient dehydrated herself from severe polyuria due to very poorly contr olled diabetes. Patient correlates the story and agrees this is likely the reason for her syncope. Continue checking labs daily
[2020-02-05] MEDS: INSULIN LISPRO 100 UNIT/ML 3 ML VIAL SUBCUT SCH ×2 (17:46→23:05)
[2020-02-05] MEDS: DULOXETINE HCL 30 MG CAPSULE.DR PO SCH (19:29)
[2020-02-05 21:04] LABS: CREATINE KINASE MB < 0.22 ng/mL (<4.55); TROPONIN I < 0.012 ng/mL
[2020-02-05] MEDS ORDERED: INSULIN GLARGINE,HUM.REC.ANLOG 1,000 UNIT/10 ML VIAL SUBCUT SCH (22:00)
[2020-02-06] MEDS: HEPARIN SOD (PORCINE) 5,000 UNIT/ML 1 ML VIAL SUBCUT SCH ×2 (05:23→14:29)
[2020-02-06] MEDS ORDERED: LEVOTHYROXINE SODIUM 0.1 MG TABLET PO SCH (06:00)
[2020-02-06] MEDS ORDERED: (PENDING PHARMACY ID) (Levothyroxine Sodium [Synthroid] 125 MCG) PO SCH (06:00)
[2020-02-06] MEDS ORDERED: LEVOTHYROXINE SODIUM 0.025 MG TABLET PO SCH (06:00)
[2020-02-06 06:17] LABS: HEMOGLOBIN 13.3 g/dL (12.0-15.5); MEAN CORPUSCULAR HEMOGLOBIN 33.3 pg (27.0-33.4); MEAN CORPUSCULAR VOLUME 98 fl (80-97); PLATELET COUNT 102 10^3/uL (150-450); RED BLOOD COUNT 3.99 10^6/uL (3.72-5.28); RED CELL DISTRIBUTION WIDTH 13.8 % (11.5-14.0); WHITE BLOOD COUNT 5.1 10^3/uL (4.0-10.5)
[2020-02-06] MEDS: RINGERS SOLUTION,LACTATED 1,000 ML IV PRN ×2 (06:22→14:32)
[2020-02-06 06:40] LABS: ANION GAP 6 (5-19); BLOOD UREA NITROGEN 9 mg/dL (7-20); CALCIUM 8.9 mg/dL (8.4-10.2); CARBON DIOXIDE 27 mmol/L (22-30); CHLORIDE 106 mmol/L (98-107); CHOLESTEROL 150.83 mg/dL (0-200); GLUCOSE 188 mg/dL (75-110); TRIGLYCERIDES 274 mg/dL (<150)
[2020-02-06 06:51] LABS: DIRECT LDL 86 mg/dL (<100)
[2020-02-06 06:55] LABS: VLDL CHOLESTEROL 54.8 mg/dL (10-31)
[2020-02-06] MEDS: INSULIN LISPRO 100 UNIT/ML 3 ML VIAL SUBCUT SCH ×5 (07:57→16:30)
[2020-02-06] MEDS ORDERED: (PENDING PHARMACY ID) (Telmisartan [Micardis 20 Mg Tablet] 20 MG) PO SCH (10:00)
[2020-02-06] MEDS ORDERED: (PENDING PHARMACY ID) (Metformin Hcl [Metformin Hcl Er] 1,000 MG) PO SCH (10:00)
[2020-02-06] MEDS ORDERED: LOSARTAN POTASSIUM 25 MG TABLET PO SCH (10:00)
[2020-02-06] MEDS ORDERED: SITAGLIPTIN PHOSPHATE 50 MG TABLET PO SCH (10:00)
[2020-02-06] MEDS ORDERED: ISOSORBIDE MONONITRATE 30 MG TAB.ER.24H PO SCH (10:00)
[2020-02-06] MEDS ORDERED: METOPROLOL SUCCINATE 25 MG TAB.SR.24H PO SCH (10:00)
[2020-02-06] MEDS: DOCUSATE SODIUM 100 MG CAPSULE PO SCH (10:43)
[2020-02-06] MEDS: FAMOTIDINE 20 MG TABLET PO SCH (10:45)
[2020-02-06] MEDS: DULOXETINE HCL 30 MG CAPSULE.DR PO SCH (10:45)
--- NOTE | 2020-02-06 10:45 | PDOC PROGRESS REPORT ---
Subjective Progress Note for:: 02/06/20 Subjective:: KENISHA ROSE is a 64 year old female with history of hypertension, type 2 diabetes, hyperlipidemia, prior history of tobacco use who had been vaping for the last 6 years and family history of premature coronary artery disease in her father who had his first bypass surgery in his 40s who is consulted to our service for evaluation of syncope. The patient had been in her usual state of health until 1 or 2 days prior to admission when she was incidentally found to have low blood pressure with a systolic reading in the mid 90s during an evaluation by her ENT physician. The day of admission she was doing well and took her usual dose of trazodone and Cymbalta but instead of going to bed she went to visit her adult child. While in the car she felt "drunk" but had no other symptoms. Upon arriving at her destination and while she was exiting the car she felt very dizzy and lightheaded, was diaphoretic and lost consciousness for an unknown amount of time. Upon awakening she felt very weak and confused. She denied preceding palpitations, chest pain but did feel very hot. She also denies prior episodes of syncope. EMS was called and found the patient h ypotensive which persisted in the emergency room and improved after receiving 2 L of IV fluids. Of note, her orthostatic vital signs in the emergency room where still positive. Upon my evaluation of the patient in the emergency room she feels better and without recurrence of index symptoms. She specifically denies chest pain, shortness of breath, MADRID, PND, lower extremity edema, palpitations, syncope and presyncope. Her EKG demonstrated normal sinus rhythm without any significant conduction disease. 02/06/2020: The patient had an uneventful night and has no cardiovascular complaints this morning. She denies recurrence of index symptoms. Her blood pressure has been stable and within the normal range. She ruled out for acute coronary syndrome with 2 sets of negative cardiac troponins. Her telemetry demonstrated normal sinus rhythm without any malignant atrial or ventricular dysrhythmias. Physical exam on 02/06/2020: GENERAL: Pleasant and conversational. Oriented x3 with normal mood. Not in acute distress. Well groomed and well developed. HEENT: Normocephalic, atraumatic. Pupils equal. Sclerae anicteric. Oropharynx moist. NECK: No JVD. No carotid bruits. LUNGS: Clear to auscultation bilaterally. Normal respiratory effort without the use of accessory muscles or intercostal retractions. CARDIOVASCULAR: Regular rate and rhythm, normal S1 and S2 without murmurs, rubs, or gallops. PMI not displaced. ABDOMEN: No masses or tenderness to palpation. No bruit. No splenomegaly or hepatomegaly. No abdominal aorta bruit noted. EXTREMITIES: No edema, no cyanosis, no clubbing. +2 pulses femoral and pedal pulses bilaterally. SKIN: No lesions or rashes. MUSCULOSKELETAL: No chest tenderness to palpation. NEUROLOGIC: Nonfocal. No gross sensory or motor deficits bilateral upper or lower extremities. Reason For Visit: SYNCOPAL EPISODE,ORTHOSTATIC HYPOTENSION,OCCIPITAL Physical Exam Vital Signs: Temp Pulse Resp BP Pulse Ox 98.6 F 85 18 136/80 H 100 02/05/20 23:47 02/06/20 02:00 02/05/20 23:47 02/05/20 23:47 02/05/20 23:47 Intake & Output 02/05/20 02/06/20 02/07/20 06:59 06:59 06:59 Intake Total 2000 3000 Balance 2000 3000 Weight 98.43 kg 98.4 kg Results Laboratory Results: 02/06/20 05:31 02/06/20 05:31 02/06/20 02/06/20 02/06/20 05:31 05:31 05:31 WBC 5.1 RBC 3.99 Hgb 13.3 Hct 39.0 MCV 98 H MCH 33.3 MCHC 34.0 RDW 13.8 Plt Count 102 L Sodium 138.5 Potassium 4.0 Chloride 106 Carbon Dioxide 27 Anion Gap 6 BUN 9 Creatinine 0.51 L Est GFR ( Amer) > 60 Glucose 188 H Calcium 8.9 Magnesium 1.9 Triglycerides 274 H Cholesterol 150.83 LDL Cholesterol Direct 86 VLDL Cholesterol 54.8 H HDL Cholesterol 25 L TSH 0.68 02/04/20 02/04/20 02/05/20 22:12 22:12 04:37 Creatine Kinase 26 L 25 L CK-MB (CK-2) < 0.22 Troponin I < 0.012 02/05/20 02/05/20 02/05/20 04:37 10:30 10:30 Creatine Kinase 24 L CK-MB (CK-2) < 0.22 < 0.22 Troponin I < 0.012 < 0.012 02/05/20 02/05/20 20:05 20:05 Creatine Kinase 28 L CK-MB (CK-2) < 0.22 Troponin I < 0.012 Impressions: Cervical Spine CT 02/04/20 21:54 IMPRESSION: No acute fracture or malalignment. Reversal of the normal cervical lordosis, either related to positioning and/or muscle spasm. Multilevel cervical spondylosis, as above. Heterogeneous and enlarged thyroid. Recommend thyroid US. Reference: J Am Carter Radiol. 2015 Aug;12(2): 143-50 TECHNICAL DOCUMENTATION: Quality ID # 436: Final reports with documentation of one or more dose reduction techniques (e.g., Automated exposure control, adjustment of the mA and/or kV according to patient size, use of iterative reconstruction technique) copyright 2010 [employer]- All Rights Reserved Head CT 02/04/20 21:55 IMPRESSION: No acute intracranial abnormality. Mild generalized atrophy. Small remote lacunar infarct within the anterior limb of the left internal capsule. TECHNICAL DOCUMENTATION: Quality ID # 436: Final reports with documentation of one or more dose reduction techniques (e.g., Automated exposure control, adjustment of the mA and/or kV according to patient size, use of iterative reconstruction technique) copyright 2010 [employer]- All Rights Reserved Chest X-Ray 02/04/20 23:26 IMPRESSION: 1. No acute cardiothoracic abnormality. 02/06/20 05:31 02/06/20 05:31 MCV 98 fl (80-97) H 02/06/20 05:31 MCH 33.3 pg (27.0-33.4) 02/06/20 05:31 MCHC 34.0 g/dL (32.0-36.0) 02/06/20 05:31 RDW 13.8 % (11.5-14.0) 02/06/20 05:31 Seg Neutrophils % 65.7 % (42-78) 02/04/20 22:12 Chloride 106 mmol/L (98-107) 02/06/20 05:31 Carbon Dioxide 27 mmol/L (22-30) 02/06/20 05:31 Anion Gap 6 (5-19) 02/06/20 05:31 Est GFR ( Amer) > 60 (>60) 02/06/20 05:31 Glucose 188 mg/dL (75-110) H 02/06/20 05:31 Calcium 8.9 mg/dL (8.4-10.2) 02/06/20 05:31 Magnesium 1.9 mg/dL (1.6-2.3) 02/06/20 05:31 Total Bilirubin 0.9 mg/dL (0.2-1.3) 02/04/20 22:12 AST 210 U/L (14-36) H 02/04/20 22:12 Alkaline Phosphatase 62 U/L (38-126) 02/04/20 22:12 Total Protein 7.3 g/dL (6.3-8.2) 02/04/20 22:12 Albumin 4.2 g/dL (3.5-5.0) 02/04/20 22:12 Triglycerides 274 mg/dL (<150) H 02/06/20 05:31 Cholesterol 150.83 mg/dL (0-200) 02/06/20 05:31 LDL Cholesterol Direct 86 mg/dL (<100) 02/06/20 05:31 VLDL Cholesterol 54.8 mg/dL (10-31) H 02/06/20 05:31 HDL Cholesterol 25 mg/dL (>40) L 02/06/20 05:31 TSH 0.68 uIU/mL (0.47-4.68) 02/06/20 05:31 Urine Color YELLOW 02/05/20 00:44 Urine Appearance SLIGHTLY-CLOUDY 02/05/20 00:44 Urine pH 5.0 (5.0-9.0) 02/05/20 00:44 Ur Specific [place] 1.017 02/05/20 00:44 Urine Protein 30 mg/dL (NEGATIVE) H 02/05/20 00:44 Urine Glucose (UA) >=500 mg/dL (NEGATIVE) H 02/05/20 00:44 Urine Ketones NEGATIVE mg/dL (NEGATIVE) 02/05/20 00:44 Urine Blood NEGATIVE (NEGATIVE) 02/05/20 00:44 Urine Nitrite NEGATIVE (NEGATIVE) 02/05/20 00:44 Ur Leukocyte Esterase NEGATIVE (NEGATIVE) 02/05/20 00:44 Urine WBC (Auto) 2 /HPF 02/05/20 00:44 Urine RBC (Auto) 1 /HPF 02/05/20 00:44 02/04/20 02/04/20 02/05/20 22:12 22:12 04:37 Creatine Kinase 26 L 25 L CK-MB (CK-2) < 0.22 Troponin I < 0.012 02/05/20 02/05/20 02/05/20 04:37 10:30 10:30 Creatine Kinase 24 L CK-MB (CK-2) < 0.22 < 0.22 Troponin I < 0.012 < 0.012 02/05/20 02/05/20 20:05 20:05 Creatine Kinase 28 L CK-MB (CK-2) < 0.22 Troponin I < 0.012 Current Medication List Generic Name Dose Route Start Last Admin Trade Name Freq PRN Reason Stop Dose Admin Acetaminophen 650 mg 02/05/20 03:49 Tylenol 325 Mg Tablet PO 03/06/20 03:48 Q4HP PRN For headache, pain or fever Hydrocodone Bitart/Acetaminophen 1 tab 02/05/20 17:41 Alexis 7.5-325 Mg Tablet PO 02/12/20 17:40 Q8HP PRN ACUTE FLARE PAIN Al Hydrox/Mg Hydrox/Simethicone 30 ml 02/05/20 03:43 Maalox Plus Susp 30 Udcup PO 03/06/20 03:42 Q6HP PRN HEARTBURN Dextrose 12.5 gm 02/05/20 03:52 Dextrose Inj 50% Syringe (25 Gm/50 Ml) IV 03/06/20 03:51 PRN PRN FOR BG 50-69 IN ALERT PATIENT Protocol Dextrose 25 gm 02/05/20 03:52 Dextrose Inj 50% Syringe (25 Gm/50 Ml) IV 03/06/20 03:51 PRN PRN PER PROTOCOL Protocol Docusate Sodium 100 mg 02/05/20 10:00 02/05/20 19:29 Colace 100 Mg Capsule PO 03/06/20 09:59 100 mg BID LEATHA Administration Duloxetine HCl 30 mg 02/05/20 18:00 02/05/20 19:29 Cymbalta 30 Mg Capsule. PO 03/06/20 17:59 30 mg BID LEATHA Administration Famotidine 20 mg 02/05/20 10:00 02/05/20 23:05 Pepcid 20 Mg Tablet PO 03/06/20 09:59 20 mg Q12 LEATHA Administration Glucagon 1 mg 02/05/20 03:52 Glucagen Inj 1 Mg Vial IM 03/06/20 03:51 PRN PRN Evaluate for BG < 70 Protocol Glucose 15 gm 02/05/20 03:52 Glutose 40% Gel 15 Gm Tube PO 03/06/20 03:51 PRN PRN FOR BG 50-69 IN ALERT PATIENT Protocol Glucose 30 gm 02/05/20 03:52 Glutose 40% Gel 15 Gm Tube PO 03/06/20 03:51 PRN PRN FOR BG < 50 IN ALERT PATIENT Protocol Guaifenesin 200 mg 02/05/20 03:49 Robitussin Syrup 200 Mg/10 Ml Ud Cup PO 03/06/20 03:48 Q4HP PRN COUGH Heparin Sodium (Porcine) 5,000 unit 02/05/20 06:00 02/06/20 05:23 Heparin Inj 5,000 Units/Ml 1 Ml Vial SUBCUT 03/06/20 05:59 Not Given Q8 LEATHA Lactated Ringer's 1,000 mls @ 167 mls/hr 02/05/20 03:43 02/06/20 06:22 Lactated Ringers 1000 Ml Iv Soln IV 03/06/20 03:42 167 mls/hr CONTINUOUS PRN Administration THIS MED IS NOT "PRN" Insulin Glargine 5 unit 02/05/20 22:00 02/05/20 23:05 Lantus Insulin 100 Unit/1 Ml 10 Ml SUBCUT 03/06/20 21:59 5 unit QHS LEATHA Administration Insulin Human Lispro 0 - 12 unit 02/05/20 16:00 02/05/20 23:05 Humalog Insulin 100 Unit/1 Ml 3 Ml Vial SUBCUT 03/06/20 15:59 4 unit ACHS LEATHA Administration Protocol Isosorbide Mononitrate 30 mg 02/06/20 10:00 Imdur 30 Mg Tablet.Er PO 03/07/20 09:59 DAILY LEATHA Levothyroxine Sodium 0.1 mg 02/06/20 06:00 02/06/20 05:21 Synthroid 0.1 Mg Tablet PO 03/07/20 05:59 0.1 mg Q6AM LEATHA Administration Levothyroxine Sodium 0.025 mg 02/06/20 06:00 02/06/20 05:21 Synthroid 0.025 Mg Tablet PO 03/07/20 05:59 0.025 mg Q6AM LEATHA Administration Losartan Potassium 25 mg 02/06/20 10:00 Cozaar 25 Mg Tablet PO 03/07/20 09:59 DAILY LEATHA Magnesium Hydroxide 30 ml 02/05/20 03:43 Milk Of Magnesia 30 Ml Udcup PO 03/06/20 03:42 DAILYP PRN FOR CONSTIPATION Melatonin 5 mg 02/05/20 03:49 02/05/20 23:05 Melatonin 5 Mg Tablet PO 03/06/20 03:48 5 mg QHS PRN Administration SLEEP OR INSOMNIA Metformin HCl 500 mg 02/06/20 19:00 Glucophage 500 Mg Tablet PO 03/07/20 18:59 BIDBS LEATHA Metoprolol Succinate 25 mg 02/06/20 10:00 Toprol Xl 25 Mg Tab.Sr PO 03/07/20 09:59 DAILY LEATHA Ondansetron HCl 4 mg 02/05/20 03:43 Zofran Inj/Pf 4 Mg/2 Ml Sdv IV 03/06/20 03:42 Q4HP PRN FOR NAUSEA/VOMITING Patient Own Medication 2 gm 02/05/20 17:41 Diclofenac Sodium [Diclofenac Sodium] TOP QIDP PRN FOR PAIN Sitagliptin Phosphate 100 mg 02/06/20 10:00 Januvia 50 Mg Tablet PO 03/07/20 09:59 DAILY LEATHA Sodium Chloride 2.5 ml 02/05/20 06:00 02/06/20 05:23 Saline Flush 2.5 Ml Monoject Prefil Syrin IV 03/06/20 05:59 Not Given Q8 LEATHA Discontinued Medications Generic Name Dose Route Start Last Admin Trade Name Freq PRN Reason Stop Dose Admin Sodium Chloride 1,000 mls @ 0 mls/hr 02/04/20 21:49 02/05/20 00:30 Nacl 0.9% 1000 Ml Iv Soln IV Infused X 2 BAGS PRN Infusion THIS MED IS NOT "PRN" Wide Open Insulin Human Regular 0 - 15 unit 02/05/20 03:49 Humulin R (Pyxis) Insulin 100 Unit/Ml 3ml SUBCUT 03/06/20 03:48 ACHSP PRN PER PROTOCOL Protocol Lorazepam 1 mg 02/05/20 03:49 Ativan Inj 2 Mg/1 Ml Vial IV 02/12/20 03:48 Q4HP PRN ANXIETY/AGITATION Morphine Sulfate 2 - 4 mg 02/05/20 03:49 Morphine 10 Mg/Ml Inj IV 02/12/20 03:48 Q2HP PRN See protocol Protocol Assessment & Plan - Diagnosis (1) Syncope Qualifiers: Syncope type: unspecified Qualified Code(s): R55 - Syncope and collapse Is this a current diagnosis for this admission?: Yes Plan: Unclear etiology however may be related to either dehydration as the patient was orthostatic in the emergency room versus a vasovagal event. She does not have i schemic symptoms and ruled out for acute coronary syndrome with at least 2 sets of negative cardiac enzymes. She has remained hemodynamically stable and asymptomatic since admission. Her telemetry is negative for any significant atrial or ventricular dysrhythmias. I will interpret her echocardiogram as soon as it becomes available. Recommendations: -The patient may be discharged from the cardiovascular standpoint. -She will be evaluated by my partner, Dr. Pineda, in our office within 1 week of discharge to arrange for outpatient cardiac rhythm monitoring to assess for occult dysrhythmias.
--- NOTE | 2020-02-06 15:42 | RADIOLOGY REPORT (SQ) ---
EXAM DESCRIPTION: CAROTID DOPPLER IMAGES COMPLETED DATE/TIME: 02/06/2020 2:40 pm REASON FOR STUDY: vascular disease COMPARISON: None. TECHNIQUE: Grayscale ultrasound, Doppler velocity and spectra, and color Doppler images acquired of the extra-cranial carotid and vertebral arteries. Images stored on PACS. LIMITATIONS: None. FINDINGS: RIGHT CAROTID CCA Velocities: Within normal limits. ICA Velocities Peak systolic 97 cm/s. End diastolic 42 cm/s. Proximal ICA/CCA peak systolic ratio 1.6. Spectra normal. No significant plaque. LEFT CAROTID CCA Velocities: Within normal limits. ICA Velocities Peak systolic 74 cm/s. End diastolic 27 cm/s. Proximal ICA/CCA peak systolic ratio 1.1. Spectra normal. No significant plaque. VERTEBRAL ARTERIES: Antegrade flow. Normal waveforms. SUBCLAVIAN ARTERIES: No finding. OTHER: No other significant finding. IMPRESSION: NO HEMODYNAMICALLY SIGNIFICANT STENOSIS. COMMENT: Quality ID #[id number]: Velocity criteria are extrapolated from the diameter data as defined by t he Society of Radiologists in Ultrasound Consensus Conference. Radiology 2003: 229; 340-346. TECHNICAL DOCUMENTATION: JOB ID: [id number] 2010 [employer]- All Rights Reserved Reading location - IP/workstation name: [email or web address]
--- NOTE | 2020-02-06 15:55 | Progress Note ---
Provider Note Provider Note: The patient had echocardioram done earlier today however it was mistakenly logged under Dr. Wang for him to read. I did review the images which are normal for her age and without any significant structural abnormalities that could explain her syncopal event. The official report will follow as soon as the study is correctly logged under my name.
--- NOTE | 2020-02-06 17:40 | PDOC DISCHARGE SUMMARY ---
Impression - Admit/DC Date/PCP Admission Date/Primary Care Provider: 02/05/20 01:53 BAKARI VERDIN MD Discharge Date: 02/06/20 - Assessment Summary: Patient will be admitted to observation status on the telemetry unit where she will receive routine supportive and symptomatic cares. Serial cardiac enzymes will be obtained. A cardiology consultation with Dr. Hdz will be obtained. Patient will be given IV fluids utilizing lactated Ringer solution at 167 mL/h initially. A carotid Doppler study will be performed. Patient will receive Ativan 1 mg IV every 4 hours as needed for anxiety or restlessness. She will receive morphine sulfate 2 to 4 mg IV every 2 hours as needed for control of pain. A hemoglobin A1c, a thyroid profile and a lipid profile will be obtained. Patient will be on a diabetic and cardiac restricted diet. Before meals and at bedtime Accu-Cheks will be obtained with sliding scale insulin used to control hyperglycemia and a hypoglycemic protocol in place. - Additional Information Resuscitation Status: Full Code Discharge Diet: Diabetic Discharge Activity: Activity As Tolerated, Balance Activity w/Rest Referrals: BAKARI VERDIN MD [Primary Care Provider] - 02/13/20 2:00 pm Prescriptions: Famotidine [Pepcid 20 mg Tablet] 20 mg PO Q12 #60 tablet Home Medications: Levothyroxine Sodium [Synthroid] 125 mcg PO Q6AM 02/22/13 Telmisartan [Micardis 20 mg Tablet] 20 mg PO DAILY 02/22/13 Diclofenac Sodium 2 gm TOP QIDP PRN 02/05/20 Duloxetine HCl [Cymbalta 30 mg Capsule.dr] 30 mg PO BID 02/05/20 Hydrocodone/Acetaminophen [[place] 7.5-325 mg Tablet] 1 tab PO Q8HP PRN 02/05/20 Isosorbide Mononitrate [Imdur 30 mg Tablet.er] 30 mg PO DAILY 02/05/20 Metformin HCl [Metformin HCl ER] 1,000 mg PO DAILY 02/05/20 Metoprolol Succinate [Toprol Xl 25 mg Tab.sr] 25 mg PO DAILY 02/05/20 Sitagliptin Phosphate [Januvia 50 mg Tablet] 100 mg PO DAILY 02/05/20 Famotidine [Pepcid 20 mg Tablet] 20 mg PO Q12 #60 tablet 02/06/20 Insulin Glargine,Hum.rec.anlog [Lantus Insulin 100 Unit/1 ml 10 ml] 10 unit SUBCUT QHS unit 02/06/20 History of Present Illiness History of Present Illness: Per admitting physician: "KENISHA ROSE is a 64 year old female who presented emergency room with an acute syncopal episode. Prior to arrival in the ER she experienced a syncopal episode at her daughter's home. Before leaving home to go to visit her daughter she had taken her usual nighttime medications of trazodone and Cymbalta. When they arrived at her daughter's home she felt lightheaded and "drunk" as she was getting out of the car and then as she stood up she lost consciousness landing on the ground, striking the back of her head. She was unconscious for only a minute or so before spontaneously regaining consciousness and was alert but still laying on the ground by the time her arrived by her side as he returned from the house. She felt awake and alert but still became lightheaded with any attempts at standing. She denies other associated or accompanying signs and symptoms. She denies prior similar episodes. She admits that earlier in the day she had been told she would have to start taking insulin because her blood sugar control was poor. She was also seen by her ear nose and throat physician who told her incidentally that her blood pressure was 90/60 in his office. She has not identified any additional aggravating or ameliorating factors for her syncope. In the emergency room she was noted to be mildly hypotensive with a blood pressure 83/55 which improved after receiving a liter of IV fluid. CT scan of the head was negative for intracranial injury or acute intracranial process. Patient was still orthostatically hypotensive after receiving fluids. She was subsequently admitted to observation status for further evaluation and treatment." Hospital Course Hospital Course: Patient here with syncope and collapse after having very poorly controlled diabetes with blood sugars in the 300s and 400s at home and causing the patient to have severe polyuria and glucosuria. This physiology was discussed with the patient during admission and she states she now understands why she must control her blood sugar. Patient's PCP had recently prescribed her 10 units of Lantus that she should take once per day however the patient has not gotten around to filling this prescription. She also noted that he advised her to increase the Lantus dose by 2 units if her blood sugars not at goal each day. Patient will be discharged and she will fill this prescription that she has folded up in her Bible. Patient's blood sugars were significantly better controlled when she was placed on appropriate insulin here. Her polyuria resolved. Patient was also counseled on maintaining adequate hydration and keeping track of her blood sugars as well as blood pressure. She will need to bring a log of her blood sugars to her PCP at her follow-up visit to have her insulin adjusted. nurse educator saw the patient and spent a great deal of time counseling her on her diabetes management. Patient had carotid PVL which did not show any significant stenoses and her echocardiogram was reviewed by Dr. Hdz and he agreed that she can be discharged to home. Physical Exam Vital Signs: Temp Pulse Resp BP Pulse Ox 98.2 F 64 17 101/62 97 02/06/20 15:24 02/06/20 15:24 02/06/20 15:24 02/06/20 15:24 02/06/20 15:24 Intake & Output 02/05/20 02/06/20 02/07/20 06:59 06:59 06:59 Intake Total 1999 3000 1576 Balance 1999 3000 1576 Weight 98.43 kg 98.4 kg General appearance: PRESENT: no acute distress, well-developed, well-nourished Head exam: PRESENT: atraumatic, normocephalic Eye exam: PRESENT: conjunctiva pink Mouth exam: PRESENT: moist Respiratory exam: PRESENT: clear to auscultation anjel. ABSENT: rales, rhonchi, wheezes Cardiovascular exam: PRESENT: RRR. ABSENT: diastolic murmur, rubs, systolic murmur GI/Abdominal exam: PRESENT: normal bowel sounds, soft. ABSENT: distended, guarding, mass, organolmegaly, rebound, tenderness Extremities exam: ABSENT: pedal edema Neurological exam: PRESENT: alert, awake, oriented to person, oriented to place, oriented to time, oriented to situation Psychiatric exam: PRESENT: appropriate affect, normal mood Skin exam: PRESENT: dry, intact, warm Results Laboratory Results: WBC 5.1 10^3/uL (4.0-10.5) 02/06/20 05:31 RBC 3.99 10^6/uL (3.72-5.28) 02/06/20 05:31 Hgb 13.3 g/dL (12.0-15.5) 02/06/20 05:31 Hct 39.0 % (36.0-47.0) 02/06/20 05:31 MCV 98 fl (80-97) H 02/06/20 05:31 MCH 33.3 pg (27.0-33.4) 02/06/20 05:31 MCHC 34.0 g/dL (32.0-36.0) 02/06/20 05:31 RDW 13.8 % (11.5-14.0) 02/06/20 05:31 Plt Count 102 10^3/uL (150-450) L 02/06/20 05:31 Lymph % (Auto) 18.9 % (13-45) 02/04/20 22:12 [place] % (Auto) 10.1 % (3-13) 02/04/20 22:12 Eos % (Auto) 4.3 % (0-6) 02/04/20 22:12 Baso % (Auto) 1.0 % (0-2) 02/04/20 22:12 Absolute Neuts (auto) 4.4 10^3/uL (1.7-8.2) 02/04/20 22:12 Absolute Lymphs (auto) 1.3 10^3/uL (0.5-4.7) 02/04/20 22:12 Absolute Monos (auto) 0.7 10^3/uL (0.1-1.4) 02/04/20 22:12 Absolute Eos (auto) 0.3 10^3/uL (0.0-0.6) 02/04/20 22:12 Absolute Basos (auto) 0.1 10^3/uL (0.0-0.2) 02/04/20 22:12 Seg Neutrophils % 65.7 % (42-78) 02/04/20 22:12 Sodium 138.5 mmol/L (137-145) 02/06/20 05:31 Potassium 4.0 mmol/L (3.6-5.0) 02/06/20 05:31 Chloride 106 mmol/L (98-107) 02/06/20 05:31 Carbon Dioxide 27 mmol/L (22-30) 02/06/20 05:31 Anion Gap 6 (5-19) 02/06/20 05:31 BUN 9 mg/dL (7-20) 02/06/20 05:31 Creatinine 0.51 mg/dL (0.52-1.25) L 02/06/20 05:31 Est GFR ( Amer) > 60 (>60) 02/06/20 05:31 Est GFR (MDRD) Non-Af > 60 (>60) 02/06/20 05:31 Glucose 188 mg/dL (75-110) H 02/06/20 05:31 POC Glucose 254 mg/dL (70-110) H 02/06/20 15:29 Hemoglobin A1c % 8.9 % (4.7-6.0) H 02/06/20 05:31 Calcium 8.9 mg/dL (8.4-10.2) 02/06/20 05:31 Magnesium 1.9 mg/dL (1.6-2.3) 02/06/20 05:31 Total Bilirubin 0.9 mg/dL (0.2-1.3) 02/04/20 22:12 Direct Bilirubin 0.1 mg/dL (0.0-0.4) 02/04/20 22:12 Neonat Total Bilirubin Not Reportable 02/04/20 22:12 Neonat Direct Bilirubin Not Reportable 02/04/20 22:12 Neonat Indirect Bili Not Reportable 02/04/20 22:12 AST 210 U/L (14-36) H 02/04/20 22:12 ALT 325 U/L (<35) H 02/04/20 22:12 Alkaline Phosphatase 62 U/L (38-126) 02/04/20 22:12 Creatine Kinase 28 U/L (30-135) L 02/05/20 20:05 CK-MB (CK-2) < 0.22 ng/mL (<4.55) 02/05/20 20:05 Troponin I < 0.012 ng/mL 02/05/20 20:05 Total Protein 7.3 g/dL (6.3-8.2) 02/04/20 22:12 Albumin 4.2 g/dL (3.5-5.0) 02/04/20 22:12 Triglycerides 274 mg/dL (<150) H 02/06/20 05:31 Cholesterol 150.83 mg/dL (0-200) 02/06/20 05:31 LDL Cholesterol Direct 86 mg/dL (<100) 02/06/20 05:31 VLDL Cholesterol 54.8 mg/dL (10-31) H 02/06/20 05:31 HDL Cholesterol 25 mg/dL (>40) L 02/06/20 05:31 TSH 0.68 uIU/mL (0.47-4.68) 02/06/20 05:31 Urine Color YELLOW 02/05/20 00:44 Urine Appearance SLIGHTLY-CLOUDY 02/05/20 00:44 Urine pH 5.0 (5.0-9.0) 02/05/20 00:44 Ur Specific [place] 1.017 02/05/20 00:44 Urine Protein 30 mg/dL (NEGATIVE) H 02/05/20 00:44 Urine Glucose (UA) >=500 mg/dL (NEGATIVE) H 02/05/20 00:44 Urine Ketones NEGATIVE mg/dL (NEGATIVE) 02/05/20 00:44 Urine Blood NEGATIVE (NEGATIVE) 02/05/20 00:44 Urine Nitrite NEGATIVE (NEGATIVE) 02/05/20 00:44 Urine Bilirubin NEGATIVE (NEGATIVE) 02/05/20 00:44 Urine Urobilinogen NEGATIVE mg/dL (<2.0) 02/05/20 00:44 Ur Leukocyte Esterase NEGATIVE (NEGATIVE) 02/05/20 00:44 Urine WBC (Auto) 2 /HPF 02/05/20 00:44 Urine RBC (Auto) 1 /HPF 02/05/20 00:44 U Hyaline Cast (Auto) 16 /LPF 02/05/20 00:44 Urine Bacteria (Auto) 1+ /HPF 02/05/20 00:44 Squamous Epi Cells Auto 6 /HPF 02/05/20 00:44 Urine Mucus (Auto) OCC /LPF 02/05/20 00:44 Urine Ascorbic Acid NEGATIVE (NEGATIVE) 02/05/20 00:44 02/04/20 02/05/20 02/05/20 22:12 04:37 10:30 CK-MB (CK-2) < 0.22 < 0.22 < 0.22 Troponin I < 0.012 < 0.012 < 0.012 02/05/20 20:05 CK-MB (CK-2) < 0.22 Troponin I < 0.012 Impressions: Cervical Spine CT 02/04/20 21:54 IMPRESSION: No acute fracture or malalignment. Reversal of the normal cervical lordosis, either related to positioning and/or muscle spasm. Multilevel cervical spondylosis, as above. Heterogeneous and enlarged thyroid. Recommend thyroid US. Reference: J Am Carter Radiol. 2015 Aug;12(2): 143-50 TECHNICAL DOCUMENTATION: Quality ID # 436: Final reports with documentation of one or more dose reduction techniques (e.g., Automated exposure control, adjustment of the mA and/or kV according to patient size, use of iterative reconstruction technique) copyright 2010 [employer]- All Rights Reserved Head CT 02/04/20 21:55 IMPRESSION: No acute intracranial abnormality. Mild generalized atrophy. Small remote lacunar infarct within the anterior limb of the left internal capsule. TECHNICAL DOCUMENTATION: Quality ID # 436: Final reports with documentation of one or more dose reduction techniques (e.g., Automated exposure control, adjustment of the mA and/or kV according to patient size, use of iterative reconstruction technique) copyright 2010 [employer]- All Rights Reserved Chest X-Ray 02/04/20 23:26 IMPRESSION: 1. No acute cardiothoracic abnormality. Carotid Doppler Study 02/06/20 00:00 IMPRESSION: NO HEMODYNAMICALLY SIGNIFICANT STENOSIS. Plan Plan of Treatment: Follow-up with PCP Fill insulin prescription and follow PCP orders for dosing Maintain adequate hydration and report any significant increase in urinary frequency and volume to PCP Time Spent: Greater than 30 Minutes Stroke Is this a Stroke Patient?: No Acute Heart Failure - Is this a Heart Failure Patient?: No
[2020-02-06 17:57] VITALS: BP 136/80
[2020-02-06] MEDS ORDERED: METFORMIN HCL 500 MG TABLET PO SCH (19:00)
[2020-02-06] MEDS ORDERED: INSULIN GLARGINE,HUM.REC.ANLOG 1,000 UNIT/10 ML VIAL SUBCUT SCH (22:00)
--- NOTE | 2020-02-06 22:28 | XCELERA REPORT ---
[address] [address] Transthoracic Echocardiogram Report Name: KENISHA ROSE Age: 64 yrs Gender: Female : 1955 Patient Status: Inpatient Patient Location: [address] [place], [place] [address] Study Date: 02/06/2020 09:27 AM Height: 69 in Weight: 217 lb BSA: 2.1 m2 Procedure: A two-dimensional transthoracic echocardiogram with color flow and Doppler was performed. Study Quality: Fair. Reason For Study: syncope History: syncope. Ordering Physician: NESTOR CALABRESE Performed By: Dina Solano Interpretation Summary The left ventricle is normal in size. There is normal left ventricular wall thickness. LV EF is 60% to 65% Left ventricular systolic function is normal. Doppler measurements suggest normal left ventricular diastolic function The left ventricular wall motion is normal. There is no thrombus. No ASD,VSD , or PFO seen. The right ventricle is normal in size and function. The right atrium is normal. The left atrial size is normal. There is no evidence of mitral valve prolapse. There is no vegetation seen on the mitral valve. There is no mitral valve stenosis. There is a trace amount of mitral regurgitation There is no aortic valvular vegetation. There is no aortic valve stenosis There is no LVOT obstruction. No aortic regurgitation is present. There is no tricuspid stenosis. There is a trace amount of tricuspid regurgitation Right ventricular systolic pressure is normal. RVSP is 25 to 30 mm of HG , with RA mean of 5 to 10. There is no pulmonic valvular stenosis. There is a trace amount of pulmonic regurgitation The aortic root is normal size. The inferior vena cava appeared normal and decreased > 50% with respiration (RAP 5-10 mmHg) There is no pericardial effusion. MMode/2D Measurements & Calculations RVDd: 3.5 cm LVIDd: 4.7 cm FS: 33.8 % Ao root diam: 2.6 cm IVSd: 1.0 cm LVIDs: 3.1 cm EDV(Teich): Ao root area: LVPWd: 0.97 cm 101.9 ml 5.3 cm2 ESV(Teich): 38.1 mlLA dimension: 3.7 cm EF(Teich): 62.6 % LVLd ap4: 6.9 cm SV(MOD-sp4): EDV(MOD-sp4): 41.0 ml 65.0 ml LVLs ap4: 5.9 cm ESV(MOD-sp4): 24.0 ml EF(MOD-sp4): 63.1 % Doppler Measurements & Calculations MV E max hugo: MV P1/2t max hugo: Ao V2 max: LV V1 max P.7 cm/sec 101.2 cm/sec 138.8 cm/sec 6.1 mmHg MV A max hugo: MV P1/2t: 56.7 msec Ao max PG: LV V1 max: 83.4 cm/sec MVA(P1/2t): 3.9 cm2 7.7 mmHg 123.4 cm/sec MV E/A: 1.2 MV dec slope: 522.5 cm/sec2 MV dec time: 0.21 sec PA V2 max: PI end-d hugo: TR max hugo: MV P1/2t-pr_phl: 82.4 cm/sec 74.0 cm/sec 224.1 cm/sec 56.7 msec PA max P.7 mmHg TR max P.1 mmHg Left Ventricle The left ventricle is normal in size. There is normal left ventricular wall thickness. LV EF is 60% to 65%. Left ventricular systolic function is normal. Doppler measurements suggest normal left ventricular diastolic function. The left ventricular wall motion is normal. There is no thrombus. No ASD,VSD , or PFO seen. Right Ventricle The right ventricle is normal in size and function. Atria The right atrium is normal. The left atrial size is normal. Mitral Valve There is no evidence of mitral valve prolapse. There is no vegetation seen on the mitral valve. There is no mitral valve stenosis. There is a trace amount of mitral regurgitation. Aortic Valve There is no aortic valvular vegetation. There is no aortic valve stenosis. There is no LVOT obstruction. No aortic regurgitation is present. Tricuspid Valve There is no tricuspid stenosis. There is a trace amount of tricuspid regurgitation. Right ventricular systolic pressure is normal. RVSP is 25 to 30 mm of HG , with RA mean of 5 to 10. Pulmonic Valve There is no pulmonic valvular stenosis. There is a trace amount of pulmonic regurgitation. Great Vessels The aortic root is normal size. The inferior vena cava appeared normal and decreased > 50% with respiration (RAP 5-10 mmHg). Effusions There is no pericardial effusion. : NESTOR CALABRESE, Delores
== END 2020-02-06 19:10 | disposition home or self-care (01) ==
LOC: ER 21:23 → EH 02-05 01:53 → 4S 02-05 15:48
PROVIDERS: ADMIT Emergency Medicine; ATTEND Internal Medicine
DX: R55 Syncope and collapse (principal); I95.1 Orthostatic hypotension; I25.10 Atherosclerotic heart disease of native coronary artery without angina pectoris; F32.9 Major depressive disorder, single episode, unspecified; E11.9 Type 2 diabetes mellitus without complications; E78.5 Hyperlipidemia, unspecified; I10 Essential (primary) hypertension; E03.9 Hypothyroidism, unspecified; M17.0 Bilateral primary osteoarthritis of knee; F31.9 Bipolar disorder, unspecified; E66.9 Obesity, unspecified; Z96.641 Presence of right artificial hip joint; Z79.4 Long term (current) use of insulin; Z79.899 Other long term (current) drug therapy; Z87.891 Personal history of nicotine dependence; Z91.041 Radiographic dye allergy status; Z88.2 Allergy status to sulfonamides; Z91.018 Allergy to other foods; Z83.3 Family history of diabetes mellitus; Z82.49 Family history of ischemic heart disease and other diseases of the circulatory system
CPT/HCPCS: 93005; 99285; 96360; 96361; 36415 ×2; 82553 ×2; 82962 ×2; 82550 ×2; 83735; 84443; 85025; 85027; 80048; 80053; 81001; 84484 ×2; 83036; 80061; 93306; 93880; 71046; 70450; 72125; 93010; G0378 ×3; J1815 ×3; J1644 ×2; J3490 ×2; J7030; J7120 ×2

== ENCOUNTER → 2020-04-15 | Outpatient (CLI) | payer OTHER ==
[2020-04-15 13:29] VITALS: BP 115/58
--- NOTE | 2020-04-15 13:29 | ER RDC ASSESSMENT REPORT ---
Intake - In the Last 14 days Have you traveled outside [place]?: No Have you been in close contact with someone CONFIRMED: No Worked in Healthcare?: No - Symptoms Subjective Fever([place] feverish): No Chills: No Muscule Aches: Yes Runny Nose: Yes Sore Throat: Yes Cough (New or worsening chronic cough): Yes Shortness of breath: No Nausea or Vomiting: No Headache: Yes Abdominal Pain: No Diarrhea(3 or more loose stools in last 24 hours): No - Do you have any of the following Chronic lung disease: Asthma or emphysema or COPD: No Cystic Fibrosis: No Diabetes: Yes High Blood Pressure: Yes Cardiovascular Disease: Yes Chronic Kidney Disease: No Chronic Liver Disease: No Chronic blood disorder like Sickle Cell Disease: No Weak immune system due to disease or medication: No Neurologic condition that limits movement: No Developmental delay - Moderate to Severe: No Recent (within past 2 weeks) or current : No Morbid Obesity (>100 pounds over ideal weight): No - Objective Temperature: 97.7 F Pulse Rate: 80 Respiratory Rate: 16 Blood Pressure: 115/58 O2 Sat by Pulse Oximetry: 98 Objective: Given above, testing performed: flu, strep, covid Disposition: Home; Selfcare General - General Stated Complaint: sore throat Mode of Arrival: Ambulatory Information source: Patient - HPI Notes: 64-year-old female presents to [facility] clinic for COVID-19 testing. Patient reports no known exposure to COVID positive individual. Onset of symptoms 04/13/2020. Patient is reporting fatigue, muscle aches, rhinorrhea, sore throat, dry cough, and headache. Denies any fever, chills, shortness of breath, nausea or vomiting, abdominal pain or diarrhea. - Related Data Allergies/Adverse Reactions: avocado Allergy (Intermediate, Verified 02/05/20 16:55) iodine Allergy (Mild, Verified 02/05/20 16:55) rash Sulfa (Sulfonamide Antibiotics) Allergy (Mild, Verified 02/05/20 16:55) rash ivp dye Allergy (Mild, Uncoded 02/04/20 21:55) rash Past Medical History - General Information source: Patient - Social History Smoking Status: Current Every Day Smoker Family History: DM, Hypertension. denies: CAD, Malignancy - Past Medical History Cardiac Medical History: Reports: Hx Coronary Artery Disease, Hx Hypercholesterolemia, Hx Hypertension Denies: Hx Atrial Fibrillation, Hx Congestive Heart Failure, Hx DVT, Hx Heart Attack, Hx Peripheral Vascular Disease, Hx Pulmonary Embolism Pulmonary Medical History: Reports: Hx Pneumonia - A YOUNG CHILD AND ABOUT 10YRS AGO Denies: Hx Asthma, Hx Bronchitis, Hx COPD EENT Medical History: Reports: None Neurological Medical History: Reports: Hx Seizures - Infantile febrile seizures. Denies: Hx Cerebrovascular Accident Endocrine Medical History: Reports: Hx Diabetes Mellitus Type 2, Hx Hypothyroidism. Denies: Hx Diabetes Mellitus Type 1, Hx Hyperthyroidism Renal/ Medical History: Reports: None Malignancy Medical History: Reports: None GI Medical History: Reports: None. Denies: Hx Cirrhosis, Hx Crohn's Disease, Hx Hepatitis, Hx Ulcerative Colitis Musculoskeletal Medical History: Reports Hx Arthritis - Bilateral knees, Denies Hx Fibromyalgia Skin Medical History: Reports None, Denies Hx Eczema, Denies Hx Psoriasis Psychiatric Medical History: Reports: Hx Anxiety, Hx Bipolar Disorder, Hx Depression Traumatic Medical History: Reports: None Infectious Medical History: Reports: None. Denies: Hx Hepatitis Past Surgical History: Reports: Hx Cholecystectomy, Hx Hysterectomy - TAHBSO, Hx Nose Surgery - Surgery, Hx Orthopedic Surgery - Right hip replacement, Hx Tonsillectomy, Other - Multiple endoscopic procedures. Denies: Hx Pacemaker Physical Exam - General General appearance: Appears well, Alert In distress: None Notes: PHYSICAL EXAMINATION: GENERAL: Well-appearing and in no acute distress. HEAD: Atraumatic, normocephalic. EYES: sclera anicteric, conjunctiva are normal. ENT: nares patent. Moist mucous membranes. NECK: Normal range of motion, supple without lymphadenopathy. LUNGS: No increased work of breathing. Lung sounds CTAB and equal. No wheezes rales or rhonchi. HEART: Regular rate and rhythm without murmurs. ABDOMEN: Soft, nontender, normal bowel sounds, no guarding. EXTREMITIES: Normal range of motion, no pitting edema. No cyanosis. NEUROLOGICAL: A&O x 3. Normal speech. PSYCH: Normal mood, normal affect. SKIN: Warm, Dry, normal turgor, no rashes or lesions noted Patient Education/Counseling Counseling/Education: Patient presents with symptoms associated with possible Covid 19 infection. Patient does not have emergency worrying symptoms such as difficulty breathing, shortness of breath, chest pain, pressure, confusion or cyanosis. Patient appears suitable for discharge as vital signs are stable and patient is nontoxic in appearance. Good return precautions have been discussed with patient, patient verbalized understanding and is agreeable with discharge plan of care at this time. Guidance for worsening S/SX: As a person under investigation for Covid 19, the [facility], division of public health advises you to adhere to the following guidance until your test results are reported to you. If your te st result is positive, you will receive additional information from your provider and your local health department at that time. Remain at home until you are cleared by the health provider or public health authorities. Keep a log of visitors to your home, notify any visitors to your home of your isolation status. If you plan to move to a new address or leave the [facility], notify the local [facility] th department in your County. Call your doctor or seek care if you have an urgent medical need. Before seeking medical care, call ahead to get instructions from the provider before arriving at the medical office clinic or hospital. Notify them that you are being tested for the virus that causes Covid 19 so that arrangements can be made, as necessary, to prevent transmission to others in the healthcare setting. Next, notify the local health department in your county. If a medical emergency arises and you need to call 911, inform the first responders that you are being tested for the virus that causes Covid 19. Next, notify the local health department in your county. RDC Discharge - Discharge Clinical Impression: Encounter for screening laboratory testing for COVID-19 virus Upper respiratory infection Qualifiers: URI type: unspecified URI Qualified Code(s): J06.9 - Acute upper respiratory infection, unspecified Condition: Good Disposition: Home; Selfcare
[2020-04-15 13:59] LABS: A TYPE INFLUENZA AG NEGATIVE (NEGATIVE); B INFLUENZA AG NEGATIVE (NEGATIVE)
== END ==
LOC: RDC 11:17
PROVIDERS: ATTEND Registered Nurse
DX: Z20.828 Contact with and (suspected) exposure to other viral communicable diseases (principal)
CPT/HCPCS: 87070; 87880; 87635; 87804; 99201; 99211; C9803

== ENCOUNTER → 2020-06-17 | Outpatient (CLI) | payer MEDICARE, OTHER ==
--- NOTE | 2020-06-17 12:26 | WOMENS IMAGING REPORT ---
EXAM DESCRIPTION: BONE DENSITY HIP/SPINE IMAGES COMPLETED DATE/TIME: 06/17/2020 10:42 am REASON FOR STUDY: Z78.0 ASYMPTOMATIC MENOPAUSAL STATE Z78.0 ASYMPTOMATIC MENOPAUSAL STATE COMPARISON: None. TECHNIQUE: Dual-Energy X-ray Absorptiometry (DEXA) of the AP Spine and Hip. LIMITATIONS: None. FINDINGS: LUMBAR SPINE: The bone mineral density (BMD) measured from L1-L4 in the AP projection correlates with a T-score of -0.6, which is normal as defined by the World Health Organization. BMD Change vs Baseline: N/A HIP: The bone mineral density (BMD) measured in the left hip correlates with a T-score of -0.6 in the femo ral neck, which is normal as defined by the World Health Organization. BMD Change vs Baseline: N/A 10 year Fracture Risk Assessment: Major Osteoporotic Fracture: Not available. Hip Fracture: Not available. IMPRESSION: 1. LUMBAR SPINE WHO CLASSIFICATION: NORMAL. 2. HIP WHO CLASSIFICATION: NORMAL. OVERALL ASSESSMENT: WHO CLASSIFICATION: NORMAL. COMMENT: The World Health Organization defines low BMD as follows: T-score: Normal: At or above -1.0 Osteopenia: Between -1.0 and -2.5 Osteoporosis: At or below -2.5 without fractures Established osteoporosis: At or below -2.5 with fractures In general, you may wish to consider: Diagnosis Treatment Follow-up DEXA Normal BMD Prevention 2-3 years Osteopenia Prevention/Therapy 1-2 years Osteoporosis Therapy Yearly TECHNICAL DOCUMENTATION: JOB ID: [id number] 2010 [employer]- All Rights Reserved Reading location - IP/workstation name: [email or web address]
== END ==
LOC: WI 10:18
PROVIDERS: ATTEND Family Medicine
DX: Z78.0 Asymptomatic menopausal state (principal)
CPT/HCPCS: 77080

== ENCOUNTER → 2020-06-25 | Outpatient (CLI) | payer MEDICARE, OTHER ==
[~2020-06-25] MED LIST: DIPHENHYDRAMINE HCL 50 MG/ML VIAL ONE
--- NOTE | 2020-06-25 15:03 | RADIOLOGY REPORT (SQ) ---
EXAM DESCRIPTION: CT ABDOMEN WITH IV ORAL CONT IMAGES COMPLETED DATE/TIME: 06/25/2020 9:32 am REASON FOR STUDY: (R16.0)HEPATOMEGALY, NOT ELSEWHERE CLASSIFIED R16.0 HEPATOMEGALY, NOT ELSEWHERE C LASSIFIED R94.5 ABNORMAL RESULTS OF LIVER FUNCTION STUDIES COMPARISON: None. TECHNIQUE: CT scan of the abdomen performed with intravenous and with oral contrast using helical sc anning technique with dynamic intravenous contrast injection. Images reviewed with lung, soft tissue, and bone windows. Reconstructed coronal and sagittal MPR images reviewed. Delayed images for evaluat ion of the urinary system also acquired and evaluated. All images stored on PACS. All CT scanners at this facility use dose modulation, iterative reconstruc tion, and/or weight based dosing when appropriate to reduce radiation dose to as low as reasonably ac hievable (ALARA). [facility]: Dose Right [facility]: CareDose [facility]: Dose Right [facility]: Teradose 4D [facility]: [employer] CONTRAST TYPE AND DOSE: Contrast/concentration: Isovue 350.00 mmol/ml; Total Contrast Delivered: 100 .0 ml; Total Saline Delivered: 72.0 ml RENAL FUNCTION: None required. The patient is less than 50 years old. RADIATION DOSE: CT Rad equipment meets quality standard of care and radiation dose reduction techniq ues were employed. CTDIvol: 18.5 - 20.3 mGy. DLP: 2103 mGy-cm. LIMITATIONS: None. FINDINGS: LOWER CHEST: No acute abnormality. LIVER: The morphology of the liver is noncirrhotic. The portal veins are pain. There is no hepatic mass. SPLEEN: The spleen is borderline enlarged and it measures 13 cm in AP diameter. PANCREAS: No acute gross abnormality of the gallbladder. GALLBLADDER: The gallbladder is surgically absent. There is no dilatation of the intrahepatic ducts. ADRENAL GLANDS: No mass or asymmetry. RIGHT KIDNEY AND URETER: No solid mass, hydronephrosis, nephrolithiasis, hydroureter or ureterolithia sis. LEFT KIDNEY AND URETER: The subcentimeter low-attenuation lesion in the cortex of the interpolar port ion of the kidney is considered too small to characterize. There is no solid mass, hydronephrosis, n ephrolithiasis, hydroureter or ureterolithiasis AORTA AND VESSELS: No aneurysm or dissection of the abdominal aorta. The abdominopelvic vasculature is patent. RETROPERITONEUM: No retroperitoneal adenopathy, hemorrhage or mass. BOWEL AND PERITONEAL CAVITY: No bowel obstruction, bowel wall thickening or pericolonic/ perienteric inflammation. No mesenteric adenopathy, free intraperitoneal fluid or mesenteric/ omental inflammati on. APPENDIX: Unable to identify the appendix. ABDOMINAL WALL: No mass or hernia. PELVIS: The uterus is surgically absent. There is no adnexal mass. The urinary bladder is contract ed. BONES: Arthroplasty hardware in the right hip and degenerative spondylosis of the lumbar spine. Ther e is no acute fracture. OTHER: No other findings. IMPRESSION: 1. No acute intra-abdominal abnormality. 2. Status post cholecystectomy. There is no biliary ductal dilatation. 3. Borderline splenomegaly. TECHNICAL DOCUMENTATION: JOB ID: [id number] Quality ID # 436: Final reports with documentation of one or more dose reduction techniques (e.g., Au tomated exposure control, adjustment of the mA and/or kV according to patient size, use of iterative reconstruction technique) 2010 [employer]- All Rights Reserved Reading location - IP/workstation name: [email or web address]
== END ==
LOC: RAD 08:48
PROVIDERS: ATTEND Internal Medicine Gastroenterology
DX: R94.5 Abnormal results of liver function studies (principal); R16.0 Hepatomegaly, not elsewhere classified
CPT/HCPCS: 74160; J1200

== ENCOUNTER 2020-07-07 08:47 | Day surgery (SDC) | payer MEDICARE, OTHER ==
[2020-07-07 10:03] LABS: HEMATOCRIT 40.3 % (36.0-47.0); MEAN CORPUSCULAR HGB CONC 34.8 g/dL (32.0-36.0); MEAN CORPUSCULAR VOLUME 95 fl (80-97); PLATELET COUNT 101 10^3/uL (150-450); RED BLOOD COUNT 4.26 10^6/uL (3.72-5.28); RED CELL DISTRIBUTION WIDTH 13.4 % (11.5-14.0); WHITE BLOOD COUNT 6.1 10^3/uL (4.0-10.5)
[2020-07-07 10:12] LABS: INTERNATIONAL RATION (INR) 1.04; PARTIAL THROMBOPLASTIN TIME 27.1 SEC (23.5-35.8); PROTHROMBIN TIME 13.8 SEC (11.4-15.4)
[2020-07-07 10:26] LABS: BLOOD UREA NITROGEN 14 mg/dL (7-20); GLUCOSE 272 mg/dL (75-110)
[2020-07-07] MEDS ORDERED: MIDAZOLAM 2 MG/2 ML INJ ONE (11:01)
[2020-07-07] MEDS ORDERED: FENTANYL CITRATE INJ/PF 100 MCG/2 ML AMPUL ONE (11:02)
--- NOTE | 2020-07-07 12:04 | RADIOLOGY REPORT (SQ) ---
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 TECHNIQUE: After obtaining informed consent and explaining the risks and benefits of conscious sedat ion,the patient agreed to the procedure. The patient was brought to the CT suite and was placed supin e on the CT gurney. The patient was prepped and draped in the usual sterile fashion. Axial images we re obtained for targeting of theinferior right hepatic lobe. An appropriate access site was selected. IV conscious sedation was administered and physician direction by the registered nurse using 1 maik grams of Versed and 50 micrograms of fentanyl. Physiologic monitoring was provided before, during, an d after sedation. The total sedation time was 30 minutes. Documentation face to face time, the performing proceduralist, spent monitoring the patient: [address] of the liver was performed to localize an approach for the non target liver biopsy. A percutaneous site was marked. Time out was performed. After skin prep and local lidocaine for skin and deep tissue anesthesia, a coaxial biopsy needle sys tem was used to obtain several cores of tissue from the inferior right hepatic lobe. These were subm itted to the lab in formalin. No immediate postprocedure complications. Total of 2.[address] fluoro was used. 2 CT Fluoroscopic images were obtained and saved to PACS. All CT scanners at this facility use dose modulation, iterative reconstruction, and/or weight based d osing when appropriate to reduce radiation dose to as low as reasonably achievable (ALARA). [facility]: Dose Right [facility]: CareDose [facility]: Dose Right [facility]: Teradose 4D [facility]: [employer] RADIATION DOSE: CT Rad equipment meets quality standard of care and radiation dose reduction techniq ues were employed. CTDIvol: 4.0 - 20.3 mGy. DLP: 478 mGy-cm. mGy. LIMITATIONS: None. FINDINGS: CT guided liver biopsy as detailed above. IMPRESSION: CT GUIDED NON TARGET INFERIOR RIGHT HEPATIC LOBE LIVER BIOPSY PERFORMED ABOVE. PATH OLOGY PENDING. NO IMMEDIATE COMPLICATIONS. COMMENT: Patient medication list reviewed:Yes- Quality ID# [id number]:Eligible professional attests to docu menting in the medical record they obtained, updated, or reviewed the patient's current medications.. Quality ID 145: Final reports for procedures using fluoroscopy that document radiation exposure jacob socorro, or exposure time and number of fluorographic images (if radiation exposure indices are not avail able) TECHNICAL DOCUMENTATION: JOB ID: [id number] Quality ID # 436: Final reports with documentation of one or more dose reduction techniques (e.g., A utomated exposure control, adjustment of the mA and/or kV according to patient size, use of iterative reconstruction technique) 2010 [employer]- All Rights Reserved Reading location - IP/workstation name: [email or web address]
--- NOTE | 2020-07-07 12:04 | RADIOLOGY REPORT (SQ) ---
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 TECHNIQUE: After obtaining informed consent and explaining the risks and benefits of conscious sedat ion,the patient agreed to the procedure. The patient was brought to the CT suite and was placed supin e on the CT gurney. The patient was prepped and draped in the usual sterile fashion. Axial images we re obtained for targeting of theinferior right hepatic lobe. An appropriate access site was selected. IV conscious sedation was administered and physician direction by the registered nurse using 1 maik grams of Versed and 50 micrograms of fentanyl. Physiologic monitoring was provided before, during, an d after sedation. The total sedation time was 30 minutes. Documentation face to face time, the performing proceduralist, spent monitoring the patient: [address] of the liver was performed to localize an approach for the non target liver biopsy. A percutaneous site was marked. Time out was performed. After skin prep and local lidocaine for skin and deep tissue anesthesia, a coaxial biopsy needle sys tem was used to obtain several cores of tissue from the inferior right hepatic lobe. These were subm itted to the lab in formalin. No immediate postprocedure complications. Total of 2.[address] fluoro was used. 2 CT Fluoroscopic images were obtained and saved to PACS. All CT scanners at this facility use dose modulation, iterative reconstruction, and/or weight based d osing when appropriate to reduce radiation dose to as low as reasonably achievable (ALARA). [facility]: Dose Right [facility]: CareDose [facility]: Dose Right [facility]: Teradose 4D [facility]: [employer] RADIATION DOSE: CT Rad equipment meets quality standard of care and radiation dose reduction techniq ues were employed. CTDIvol: 4.0 - 20.3 mGy. DLP: 478 mGy-cm. mGy. LIMITATIONS: None. FINDINGS: CT guided liver biopsy as detailed above. IMPRESSION: CT GUIDED NON TARGET INFERIOR RIGHT HEPATIC LOBE LIVER BIOPSY PERFORMED ABOVE. PATH OLOGY PENDING. NO IMMEDIATE COMPLICATIONS. COMMENT: Patient medication list reviewed:Yes- Quality ID# [id number]:Eligible professional attests to docu menting in the medical record they obtained, updated, or reviewed the patient's current medications.. Quality ID 145: Final reports for procedures using fluoroscopy that document radiation exposure jacob socorro, or exposure time and number of fluorographic images (if radiation exposure indices are not avail able) TECHNICAL DOCUMENTATION: JOB ID: [id number] Quality ID # 436: Final reports with documentation of one or more dose reduction techniques (e.g., A utomated exposure control, adjustment of the mA and/or kV according to patient size, use of iterative reconstruction technique) 2010 [employer]- All Rights Reserved Reading location - IP/workstation name: [email or web address]
[2020-07-07 13:49] VITALS: BP 154/93
== END 2020-07-07 13:40 | disposition home or self-care (01) ==
LOC: RAD 08:47
PROVIDERS: ATTEND Internal Medicine Gastroenterology
DX: K75.81 Nonalcoholic steatohepatitis (NASH) (principal); R79.89 Other specified abnormal findings of blood chemistry; Z79.01 Long term (current) use of anticoagulants; Z79.899 Other long term (current) drug therapy
CPT/HCPCS: 36415; 84520; 82565; 82947; 85027; 85610; 85730; 88305 ×2; 88313 ×2; 77012; 47000; J2250; J3010